=== PATIENT | male | born 1955 | race Caucasian/White ===

== ENCOUNTER → 2020-09-05 14:08 | Outpatient (CLI) | payer OTHER, SELFPAY ==
--- NOTE | ~2020-09-05 | XR_ITS ---
EXAMINATION: XR chest 2V EXAM DATE: 09/05/2020 14:27 INDICATION: Respiratory infection one month ago, shortness of breath for one month. Dyspnea. TECHNIQUE: Frontal and lateral projections of the chest obtained and reviewed. Comparison is made to prior examination from 04/30/2019. FINDINGS: Scattered small regions of post infectious residua. This is unchanged compared to 2019 The lungs are otherwise clear. There are no pleural effusions. The cardiomediastinal silhouette is with in normal limits. There is no pneumothorax suspected. The bones and soft tissues are unremarkable. IMPRESSION: No acute cardiopulmonary findings. Reviewed, dictated and finalized at location B.
== END ==
PROVIDERS: PCP Emergency Medicine; Visit Provider Emergency Medicine
DX: R06.00 Dyspnea, unspecified (principal)
CPT/HCPCS: 71046

== ENCOUNTER 2021-04-04 09:22 | Outpatient (RCR) | payer OTHER, MEDICARE, SELFPAY ==
[2021-04-04] MEDS: ACETAMINOPHEN 325 MG TABLET 650 MG PO (13:14)
[2021-04-04] MEDS: diphenhydrAMINE HCl CAP 25 MG CAPSULE PO (13:14)
[2021-04-04] MEDS: FAMOTIDINE 20 MG TABLET PO (13:15)
[2021-04-04 13:16] VITALS: BP 104/70; PULSE 74; RESP 20; TEMP 36.2; O2SAT 98
[2021-04-04 14:45] VITALS: BP 104/71
--- NOTE | 2021-04-05 08:57 | PC.NURSE ---
Patient states he is feeling much better today after covid infusion.
--- NOTE | 2021-04-05 09:02 | PC.NURSE ---
Patient states he is feeling much better.
== END 2021-04-04 17:00 ==
LOC: AMCINF 09:22
PROVIDERS: PCP Emergency Medicine; Visit Provider Internal Medicine Hematology & Oncology
DX: U07.1 COVID-19 (principal); I10 Essential (primary) hypertension
CPT/HCPCS: A9270; M0243; Q0243

== ENCOUNTER 2021-05-01 09:22 | Outpatient (CLI) | payer OTHER, SELFPAY ==
--- NOTE | ~2021-05-01 | MR_ITS ---
EXAMINATION: MR cervical spine wo con EXAM DATE: 05/01/2021 10:19 INDICATION: M54.2 - Cervicalgia TECHNIQUE: Multi-sequential, multiplanar MR images of the cervical spine were obtained without contra st. Axial T2, axial T2 MERGE sequence. Sagittal T1, T2, T2 fat saturation images also obtained. Th ere is no prior study for comparison. FINDINGS: There is moderate disc disease C4-C7. There is left-sided endplate edema at C4-5, mild nick ma within these facet joints. There is 1 to 2 mm anterolisthesis C4 on C5. The spinal cord signal int ensity and intrinsic morphology is normal. Cervicomedullary junction is normal in appearance. Paraspi nal soft tissue is unremarkable. There is upper thoracic levoscoliosis, about 18 degrees as measured from T1-T4. Level by level evaluation: C2-C3: Disc does not extend beyond the endplate margin. Uncovertebral joint arthropathy: Mild right lateral. Facet joint arthropathy: Mild bilateral. Neural foraminal stenosis: No stenosis. Central canal stenosis: No stenosis. C3-C4: There is a mild diffuse disc bulge. Uncovertebral joint arthropathy: Mild to moderate bilateral. Facet joint arthropathy: Moderate left, mild to moderate right. Neural foraminal stenosis: Mild to moderate left, mild right. Central canal stenosis: Mild. C4-C5: There is a mild to moderate diffuse disc bulge. Uncovertebral joint arthropathy: Moderate to severe left, moderate right. Facet joint arthropathy: Severe left. Neural foraminal stenosis: Moderate to severe left, mild to moderate right. Central canal stenosis: Mild. C5-C6: There is a mild diffuse disc bulge. Uncovertebral joint arthropathy: Moderate bilateral. Facet joint arthropathy: Mild to moderate bilateral. Neural foraminal stenosis: Mild to moderate bilateral. Central canal stenosis: Mild. C6-C7: There is a mild diffuse disc bulge. Uncovertebral joint arthropathy: Moderate bilateral. Facet joint arthropathy: Mild to moderate bilateral. Neural foraminal stenosis: Mild bilateral. Central canal stenosis: No stenosis. C7-T1: There is a mild diffuse disc bulge. Uncovertebral joint arthropathy: Moderate bilateral. Facet joint arthropathy: Mild to moderate bilateral. Neural foraminal stenosis: Moderate to severe right, mild left. Central canal stenosis: No stenosis. IMPRESSION: Cervical spondylosis with the left C4-5 and the right C7-T1 neural foramen most narrowed on exam. Reviewed, dictated and finalized at location A. 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
== END 2021-05-01 09:23 | disposition home or self-care (01) ==
PROVIDERS: PCP Emergency Medicine; Visit Provider Emergency Medicine
DX: S16.1XXA Strain of muscle, fascia and tendon at neck level, initial encounter (principal); X58.XXXA Exposure to other specified factors, initial encounter; M47.892 Other spondylosis, cervical region
CPT/HCPCS: 72141

== ENCOUNTER 2021-10-26 11:32 | Outpatient (CLI) | payer OTHER, SELFPAY ==
--- NOTE | ~2021-10-26 | CT_ITS ---
EXAMINATION: CT sinus wo con DATE: 10/26/2021 11:54 INDICATION: Chronic sinusitis. Congestion. TECHNIQUE: Computed tomography (CT) of the paranasal sinuses was performed without contrast. Iterativ e reconstruction technique was employed. Exam dose: 315.62 mGy-cm total exam DLP. COMPARISON: None FINDINGS: There is rightward bowing of the nasal septum. There is prominent soft tissue swelling of t he middle and inferior nasal turbinates bilaterally. Intralamellar cell of left middle nasal turbinat e The ostiomeatal unit is patent on the right. There is soft tissue thickening of the left infundibulum and left maxillary ostium. Left nasal antral window is noted. Proxy 12 mm mucous retention cyst or polyp along the lower lateral right maxillary sinus wall. There is minimal mucoperiosteal thickening of both maxillary sinuses. The paranasal sinuses otherwise are n ormally developed and aerated. The mastoid air cells are normally developed and aerated. IMPRESSION: Rightward bowing of nasal septum Intralamellar cell of left middle nasal turbinate Prominent soft tissue swelling of the nasal turbinates Partial opacification of left infundibulum Left nasal antral window Mild mucoperiosteal thickening of the maxillary sinuses and 12 mm right maxillary sinus mucous retent ion cyst or polyp Reviewed, dictated and finalized at Location A. Reviewed, dictated and finalized at location A. IMPRESSION: Rightward bowing of nasal septum Intralamellar cell of left middle nasal turbinate Prominent soft tissue swelling of the nasal turbinates Partial opacification of left infundibulum Left nasal antral window Mild mucoperiosteal thickening of the maxillary sinuses and 12 mm right maxilla ry sinus mucous retention cyst or polyp
== END 2021-10-26 11:33 | disposition home or self-care (01) ==
PROVIDERS: PCP Emergency Medicine; Visit Provider Emergency Medicine
DX: J32.9 Chronic sinusitis, unspecified (principal); J34.2 Deviated nasal septum
CPT/HCPCS: 70486

== ENCOUNTER 2021-12-28 01:16 | Day surgery (SDC) | payer OTHER, SELFPAY ==
[2021-12-17 13:37] VITALS: BMI 23.7
[2021-12-28 10:00] VITALS: BP 132/92; PULSE 88; RESP 18; TEMP 36.1; O2SAT 98; BMI 23.4
[2021-12-28 10:34] LABS: Glucose Point of Care 54 mg/dl (65-105)
[2021-12-28] MEDS: LACTATED RINGERS 1,000 ML 150 ML IV CONT (10:34)
--- NOTE | 2021-12-28 10:37 | SUR.PREOP ---
1033-PT'S BLOOD SUGAR 54. PT STATES HE FELT LIGHT HEADED THIS MORNING, BUT NOT BAD NOW. DR. JAUREGUI AWARE. ORDERS RECEIVED FOR 12.5G 50% DEXTROSE IVP.
--- NOTE | 2021-12-28 10:38 | PM.HPGS ---
History of Present Illness History of Present Illness Consent: Risks, benefits, and alternatives have been discussed and questions answered. Patient agrees to proceed with procedure. Chief complaint: constipation,change in bowel habits,alexander's esop Narrative: Kirit Lema is a 66 year old male here for egd and colonoscopy. He says that last colonoscopy in 2014 and thinks had polyp. 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, last EGD 2018 with no more signs of Alexander's done by Dr Montano Review of Systems Constitutional: Constitutional: Denies headache(s) and Denies weakness Eyes: Eyes: Denies blurry vision ENT: Reports Normal hearing present, Denies headache(s) and Denies neck pain Cardiovascular: Cardiovascular: Denies chest pain and Denies dyspnea Respiratory: Respiratory: Denies dyspnea Gastrointestinal: Gastrointestinal: Reports no additional gastrointestinal complaints Genitourinary: Genitourinary: Denies dysuria Musculoskeletal: Musculoskeletal: Denies neck pain Integumentary/Breasts: Skin/Breast: Denies dry skin Neurologic: Reports Normal hearing present, Denies headache(s) and Denies weakness Psychiatric: Psychiatric: Denies anxiety Endocrine: Endocrine: Denies change in body appearance Hematologic/Lymphatic: Hematologic/Lymphatic: Denies easy bleeding Allergic/Immunologic: Allergic/Immunologic: Denies urticaria PMFSH Past Medical History Medical History (Updated 12/28/21 @ 10:39 by Amaury Cross MD) Alexander esophagus Colon cancer screening CVA (cerebral vascular accident) 08/2017 Diabetes type 2, controlled GERD (gastroesophageal reflux disease) Hypertension Family History Family History Mother Family history of malignant neoplasm Family history of cardiovascular disease Father Family history of cardiovascular disease Sibling Family history of cardiovascular disease Social History Social History Smoking status: Never smoker Alcohol intake: current Alcohol use details: social Substance use: never Substance use type: does not use Living arrangements: with family Spiritual care concerns: No Meds Home Medications and Allergies Home Medications Medication Instructions Recorded Confirmed Type aspirin 81 mg chewable tablet 81 mg PO DAILY 03/29/19 12/28/21 History pen needle, diabetic 31 gauge x #200 ea 12/01/19 12/28/21 Rx 1/4 (UltiCare Pen Needle) blood sugar diagnostic (Contour See Rx Instructions .Route 05/15/20 12/28/21 Rx Next Test Strips) .COMPLEX #200 strips pravastatin 10 mg tablet See Rx Instructions .Route 01/15/21 12/28/21 Rx .COMPLEX #90 tabs trazodone 150 mg tablet See Rx Instructions .Route 01/15/21 12/28/21 Rx .COMPLEX #90 tabs metformin 500 mg tablet See Rx Instructions .Route 01/29/21 12/28/21 Rx .COMPLEX #270 tabs omeprazole 40 mg capsule,delayed See Rx Instructions .Route 06/20/21 12/28/21 Rx release .COMPLEX #180 caps montelukast 10 mg tablet 10 mg PO DAILY #90 tabs 09/12/21 12/28/21 Rx (Singulair) benzonatate 200 mg capsule 200 mg PO TID PRN cough #30 caps 10/19/21 12/28/21 Rx insulin glargine 100 unit/mL (3 See Rx Instructions .Route 11/06/21 12/28/21 Rx mL) subcutaneous pen (Lantus .COMPLEX #45 mL Solostar U-100 Insulin) linaclotide 72 mcg capsule 72 mcg PO DAILY #30 caps 11/08/21 12/28/21 Rx (Linzess) lisinopril 40 mg tablet See Rx Instructions .Route 11/14/21 12/28/21 Rx .COMPLEX #90 tabs fluticasone propionate 50 2 spray intranasal BID #15.8 mL 11/21/21 12/28/21 Rx mcg/actuation nasal spray,suspension (Flonase Allergy Relief) duloxetine 60 mg capsule,delayed 60 mg PO DAILY #90 caps 12/10/21 12/28/21 Rx release (Cymbalta) azelastine 137 mcg (0.1 %) nasal See Rx Instructions .Route 12/14/21 12/28/21 Rx spray aerosol .COMPLEX #30 mL
--- NOTE | 2021-12-28 10:41 | WPDANESEPPF ---
Anes - Initial Pre Proc Eval Procedure: Operation Date: 12/28/21 11:15 Proposed Procedures p Esophagogastroduodenoscopy & Colonoscopy - Amaury Cross MD Date/Time: 12/28/21 10:41 Surgeon: Amaury Cross MD Pre Op Diagnosis: constipation,change in bowel habits,alexander's esop Patient Data Age: 66 Gender: M Height: 1.83 m Weight: 78.4 kg Last Vital Signs Temp 97.0 F L 12/28/21 10:00 Pulse 88 12/28/21 10:00 Resp 18 12/28/21 10:00 BP 132/92 H 12/28/21 10:00 Pulse Ox 98 12/28/21 10:00 O2 Del Method Room Air 12/28/21 10:00 Allergies Allergy/AdvReac Type Severity Reaction Status Date / Time No Known Allergies Allergy Verified 12/28/21 10:06 Home Medications Medication Instructions Recorded Confirmed Type aspirin 81 mg chewable tablet 81 mg PO DAILY 03/29/19 12/28/21 History pen needle, diabetic 31 gauge x #200 ea 12/01/19 12/28/21 Rx 1/4 (UltiCare Pen Needle) blood sugar diagnostic (Contour See Rx Instructions .Route 05/15/20 12/28/21 Rx Next Test Strips) .COMPLEX #200 strips pravastatin 10 mg tablet See Rx Instructions .Route 01/15/21 12/28/21 Rx .COMPLEX #90 tabs trazodone 150 mg tablet See Rx Instructions .Route 01/15/21 12/28/21 Rx .COMPLEX #90 tabs metformin 500 mg tablet See Rx Instructions .Route 01/29/21 12/28/21 Rx .COMPLEX #270 tabs omeprazole 40 mg capsule,delayed See Rx Instructions .Route 06/20/21 12/28/21 Rx release .COMPLEX #180 caps montelukast 10 mg tablet 10 mg PO DAILY #90 tabs 09/12/21 12/28/21 Rx (Singulair) benzonatate 200 mg capsule 200 mg PO TID PRN cough #30 caps 10/19/21 12/28/21 Rx insulin glargine 100 unit/mL (3 See Rx Instructions .Route 11/06/21 12/28/21 Rx mL) subcutaneous pen (Lantus .COMPLEX #45 mL Solostar U-100 Insulin) linaclotide 72 mcg capsule 72 mcg PO DAILY #30 caps 11/08/21 12/28/21 Rx (Linzess) lisinopril 40 mg tablet See Rx Instructions .Route 11/14/21 12/28/21 Rx .COMPLEX #90 tabs fluticasone propionate 50 2 spray intranasal BID #15.8 mL 11/21/21 12/28/21 Rx mcg/actuation nasal spray,suspension (Flonase Allergy Relief) duloxetine 60 mg capsule,delayed 60 mg PO DAILY #90 caps 12/10/21 12/28/21 Rx release (Cymbalta) azelastine 137 mcg (0.1 %) nasal See Rx Instructions .Route 12/14/21 12/28/21 Rx spray aerosol .COMPLEX #30 mL Laboratory Tests 12/28/21 10:30 POC Capillary Glucose 54 mg/dl L* mg/dl (65-105) Patient hx anesthesia problems: none Family hx anesthesia problems: none Results Review: All pre-operative results and documents have been reviewed as part of the pre-operative evaluation. [facility] Past Medical History Medical History (Updated 12/28/21 @ 10:39 by Amaury Cross MD) Alexander esophagus Colon cancer screening CVA (cerebral vascular accident) 08/2017 Diabetes type 2, controlled GERD (gastroesophageal reflux disease) Hypertension Family History Family History Mother Family history of malignant neoplasm Family history of cardiovascular disease Father Family history of cardiovascular disease Sibling Family history of cardiovascular disease Social History Social History Smoking status: Never smoker Alcohol intake: current Alcohol use details: social Substance use: never Substance use type: does not use Living arrangements: with family Spiritual care concerns: No Anes - Eval Final PreProcedure Day of Procedure 12/28/21 10:41 Patient weight: normal Heart: regular rate and rhythm Lungs: clear to auscultation Airway: Mallampati scale class II Neurological: alert and oriented Last oral intake: >/= 8 hours ASA classification: III Emergent: no Anesthetic plan: proceed Anesthesia type and monitoring: general GIVS and standard monitoring Results Review: All
[2021-12-28] MEDS: DEXTROSE 50% 25 GM/50 ML SYRINGE IV PUSH (10:45)
--- NOTE | 2021-12-28 10:57 | SUR.OPER ---
EGD ended at 1053. Colonoscopy started at 1059.
[2021-12-28 11:14] VITALS: BP 85/51; PULSE 64; RESP 20; O2SAT 100
[2021-12-28 11:24] VITALS: BP 95/61; PULSE 66; RESP 18; O2SAT 97
[2021-12-28 11:26] LABS: Glucose Point of Care 81 mg/dl (65-105)
[2021-12-28 11:34] VITALS: BP 119/83; PULSE 66; RESP 16; O2SAT 99
== END 2021-12-28 11:40 | disposition home or self-care (01) ==
PROVIDERS: PCP Emergency Medicine; Visit Provider Internal Medicine Gastroenterology
PROC: 0DJ08ZZ Inspection of Upper Intestinal Tract, Via Natural or Artificial Opening Endoscopic (ICD-10-PCS; CPT 43235; principal; 2021-12-28 11:15)
DX: Z12.11 Encounter for screening for malignant neoplasm of colon (principal); K64.8 Other hemorrhoids; K29.50 Unspecified chronic gastritis without bleeding; K59.00 Constipation, unspecified; K22.70 Barrett's esophagus without dysplasia; Z79.82 Long term (current) use of aspirin; Z79.84 Long term (current) use of oral hypoglycemic drugs; Z79.4 Long term (current) use of insulin; I25.2 Old myocardial infarction; K21.9 Gastro-esophageal reflux disease without esophagitis; I10 Essential (primary) hypertension; Z86.73 Personal history of transient ischemic attack (TIA), and cerebral infarction without residual deficits
CPT/HCPCS: 45380; 43239; 82948; 88305; J2704; J7120

== ENCOUNTER 2022-10-15 13:43 | Outpatient (CLI) | payer OTHER, SELFPAY ==
--- NOTE | ~2022-10-15 | CT_ITS ---
EXAMINATION: CT cervical spine wo con DATE: 10/15/2022 14:18 INDICATION: Strain of muscle, fascia, and tendon. Upper back pain. TECHNIQUE: Computed tomography (CT) of the cervical spine was performed without intravenous contrast. Automated exposure control and iterative reconstruction technique were employed. The dose-length pro duct was 452.55 mGy-cm. COMPARISON: Cervical spine MRI 05/01/2021 FINDINGS: There is 20 degrees levoscoliosis of cervicothoracic spine. There is 2 mm anterolisthesis o f C4 on C5. There is hypolordosis of cervical spine. Vertebral body heights are normal. There is mild ly decreased disc height at C2-C3 and severely decreased disc height from C3-C4 through C7-T1 with en dplate remodeling. The following disc levels are specifically discussed: C2-C3: There is mild bilateral uncovertebral joint osteoarthritis. There is mild bilateral facet join t osteoarthritis. There is no neural foraminal stenosis. There is no central canal stenosis. C3-C4: There is severe bilateral uncovertebral joint osteoarthritis. There is mild right and severe l eft facet joint osteoarthritis. There is mild bilateral neural foraminal stenosis. There is mild cent ral canal stenosis. C4-C5: There is severe bilateral uncovertebral joint osteoarthritis. There is mild right and severe l eft facet joint osteoarthritis. There is mild bilateral neural foraminal stenosis. There is mild cent ral canal stenosis. C5-C6: There is severe bilateral uncovertebral joint osteoarthritis. There is mild bilateral facet heide int osteoarthritis. There is mild bilateral neural foraminal stenosis. There is mild central canal st enosis. C6-C7: There is moderate right and mild left uncovertebral joint osteoarthritis. There is mild bilate ral facet joint osteoarthritis. There is no neural foraminal stenosis. There is mild central canal st enosis. C7-T1: There is severe right uncovertebral joint osteoarthritis. There is mild right and severe left facet joint osteoarthritis. There is mild right neural foraminal stenosis. There is no central canal stenosis. IMPRESSION: 1. Severe cervical spondylosis, stable from 05/01/2021. 2. Cervicothoracic levoscoliosis. Reviewed, dictated and finalized at location A.
--- NOTE | ~2022-10-15 | CT_ITS ---
EXAMINATION: CT thoracic spine wo con DATE: 10/15/2022 14:18 INDICATION: Pain in thoracic spine. TECHNIQUE: Computed tomography (CT) of the thoracic spine was performed without intravenous contrast. Automated exposure control and iterative reconstruction technique were employed. The dose-length pro duct was 859.85 mGy-cm. COMPARISON: Chest CT 09/21/2013 FINDINGS: There are surgical changes of the stomach. There is 16 degrees dextroscoliosis of thoracic spine. There is severely decreased disc height at T7-T8 and T11-T12. There is mildly decreased disc h eight at multiple levels. There is multilevel mild to moderate facet joint osteoarthritis. There is m ild central canal stenosis at T7-T8 and T11-T12. On the right, there is mild neural foraminal stenosi s at T3-T4. On the left, there is mild neural foraminal stenosis at T7-T8. IMPRESSION: 1. Severe thoracic spondylosis. 2. Thoracic dextroscoliosis. Reviewed, dictated and finalized at location A.
== END 2022-10-15 13:44 | disposition home or self-care (01) ==
PROVIDERS: PCP Emergency Medicine; Visit Provider Emergency Medicine
DX: S16.1XXA Strain of muscle, fascia and tendon at neck level, initial encounter (principal); X58.XXXA Exposure to other specified factors, initial encounter; M47.894 Other spondylosis, thoracic region; M47.892 Other spondylosis, cervical region
CPT/HCPCS: 72125; 72128

== ENCOUNTER 2022-12-19 09:00 | Outpatient (RCR) | payer OTHER, SELFPAY ==
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
--- NOTE | 2022-11-28 10:19 | OPREHPOC ---
Outpatient Therapy Plan of Care This is a Multidisciplinary Plan of Care that may contain components documented by all disciplines (PT, OT, and ST.) PT Problem 1 PT Problem #1 Knowledge Deficit PT Goal 1 Goal 1* indep with home exercise program Progress Met Comment 11-28-22 progress continue towards goals PT Problem 2 PT Problem #2 Pain PT Goal 1 Goal 1* pt report pain of 7/10 at worst 2* with sleeping, awaken 1x/night due to neck pain Progress Partially Met Comment 11-28-22 progress met goal 2 NEW GOALS: 1* pt report pain rating of 6/10 at worst 2* self assessment functional score with Neck Disability Index 40% limitation PT Problem 3 PT Problem #3 Impaired Flexibility PT Goal 1 Goal improved neck motion for ability to drive and do home tasks: sitting active cervical 1* rotation R to 75' 2* rotation L to 65' Progress Not Met Comment 11-28-22 progress continue towards goals PT Problem 4 PT Problem #4 Impaired Strength PT Goal 1 Goal 1* pt stand with neck in neutral/ no side bend to R 2* pt perform cervical- thoracic strengthening exercises in sit and stand positions x 15 reps Progress Partially Met Comment 11-28-22 progress met goal 2- update to 20 reps continue towards goals
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
--- NOTE | 2022-12-19 09:47 | PTOPDC ---
Assessment and note entered by Moriah Perkins, PT Evaluation Information Assessment Status Discharge Diagnosis cervical and thoracic radiculopathy Onset September 29, 2022 Subjective Information Kirit reports: some relief of pain for day or day and half after therapy; massage helps neck; doing the home stretches and exercises; using home stim unit and heat at home; to see dr next week. Reported Pain Level Pain Score Self Report Pain Score Self Report Additional Pain Score Comments pain range in the past week 6-810: R and L cervical, R upper traps; sleep disrupted, awaken from pain 7-8x/night increase pain: looking down, laundry, dishes, lie down in bed, mop floor; turned neck quick with driving few days ago; decrease pain sit with head supported on recliner Assessment PT Clinical Summary Kirit has received a total of 13 PT sessions. Compared to the last reassessment: pain rating is worse, from 4-8/10 to 6-8/10; sleep is disrupted by awakening 7-8x/night due to neck pain; Oswestry self assessment functional score is worse from 46 to 52% limitation in activity tolerance; cervical active ROM of rotation to R and L is slightly less and most pain increase with cervical retraction; he continues to have poor positioning of his neck and shoulders due to chronic shoulder pain/surgeries; Education has been completed for HEP and posture awareness. He reports slight relief of pain after therapy, for 1-1&1/2 hours, but then returns. The goals were not achieved. Discharge PT services. He is to follow up with the dr next week. Recommend further imaging and/or referral to neurosurgeon for assessment of pt. Plan of Care PT Services Indicated No
== END 2022-12-19 13:29 | disposition home or self-care (01) ==
LOC: ANHPT 09:00
PROVIDERS: PCP Emergency Medicine; Visit Provider Emergency Medicine
DX: M47.812 Spondylosis without myelopathy or radiculopathy, cervical region (principal); M47.814 Spondylosis without myelopathy or radiculopathy, thoracic region
CPT/HCPCS: 97110; 97140; 97162; 97530

== ENCOUNTER 2022-12-26 10:21 | Outpatient (CLI) | payer OTHER, SELFPAY ==
--- NOTE | ~2022-12-26 | XR_ITS ---
EXAMINATION: XR hand RT 2V INDICATION: Right hand pain TECHNIQUE: Two views of the right hand are obtained. COMPARISON: 07/29/2017 FINDINGS: There is moderate osteoarthritis at the first carpometacarpal joint. Bone alignment is norm al. There is no acute fracture. Moderate osteoarthritis is noted in multiple interphalangeal joints. A heterotopic ossification distal to the ulnar styloid likely represents prior fracture. Soft tissues are unremarkable. IMPRESSION: 1. Osteoarthritis without acute osseous abnormality. Reviewed, dictated and finalized at location A.
== END 2022-12-26 10:22 | disposition home or self-care (01) ==
LOC: ANHIMG 10:24
PROVIDERS: PCP Emergency Medicine; Visit Provider Emergency Medicine
DX: S69.90XA Unspecified injury of unspecified wrist, hand and finger(s), initial encounter (principal); M19.041 Primary osteoarthritis, right hand
CPT/HCPCS: 73120

== ENCOUNTER 2023-02-20 13:04 | Observation (INO) | payer OTHER, SELFPAY ==
[2023-02-20] VITALS (10 sets, daily range): BP systolic 125–152; BP diastolic 87–100; PULSE 66–88; RESP 14–22; TEMP 36.2–36.4; O2SAT 97–100; BMI 25.2
--- NOTE | ~2023-02-20 | MR_ITS ---
MRI of the brain Clinical History: Ataxia Technique: Axial and sagittal T1-weighted images were acquired. These were followed by axial T2-weigh cristy, diffusion weighted, gradient, and FLAIR images. Following intravenous administration of 16 cc Mu ltiHance gadolinium, T1-weighted fat-sat imaging was performed in the axial and coronal planes. COMPARISON: 08/22/2017 Findings: There is no acute infarct, intracranial hemorrhage, or mass lesion. There is no significant signal abnormality in the brain parenchyma. Ventricles and subarachnoid spaces are essentially unremarkable. Orbits are unremarkable. Paranasal s inuses and mastoid air cells are clear. Major intracranial flow voids appear intact. Sagittal midline structures are intact. Probable benign small developmental venous angioma noted in the left frontal lobe, of no clinical sig nificance. IMPRESSION: No significant abnormality identified. Small left frontal developmental venous angioma, of no clinical significance. Reviewed, dictated and finalized at [facility].
--- NOTE | ~2023-02-20 | CT_ITS ---
EXAMINATION: CT brain wo con DATE: 02/20/2023 14:14 INDICATION: Head injury TECHNIQUE: Computed tomography (CT) of the head was performed without intravenous contrast. Sagittal and coronal reconstructions were performed. The mA was adjusted according to patient size. Iterative reconstruction technique was employed. The dose-length product was 605.33 mGy-cm. COMPARISON: head CT dated 08/21/2017 FINDINGS: No fracture. No acute intracranial hemorrhage, acute infarction or abnormal extra axial fluid collect ion. Symmetric prominence of the sulci consistent with mild age-appropriate diffuse cerebral volume l oss. Ventricles are normal and symmetric. No mass/mass effect. The orbits, paranasal sinuses and mas toid air cells are normal. IMPRESSION: 1. Normal aging brain. No fracture or acute intracranial process. Reviewed, dictated and finalized at location A.
--- NOTE | 2023-02-20 13:16 | ECG_ITS ---
Measurements Intervals [place] Rate: 73 P: 29 OK: 189 QRS: 11 QRSD: 86 T: 20 QT: 338 QTc: 375 Interpretive Statements SINUS RHYTHM BASELINE ARTIFACT NORMAL ECG NO PREVIOUS ECG AVAILABLE FOR COMPARISON Electronically Signed On 02-20-2023 17:23:17 CDT by Buddy Coles M.D.
[2023-02-20 13:26] LABS: Basophils Absolute Auto 0.1 K/mm3 (0.0-0.1); Basophils Percent Auto 0.7 % (0.2-1.2); Eosinophils Absolute Auto 1.3 K/mm3 (0-0.3); Eosinophils Percent Auto 17.4 % (0-4.4); Hematocrit 38.9 % (42.0-52.0); Hemoglobin 12.5 g/dL (14.0-18.0); Immature Granulocyte Absolute 0.06 K/mm3 (0.00-0.031); Immature Granulocyte Percent A 0.8 % (0-0.5); Lymphocytes Absolute Auto 1.57 K/mm3 (0.9-3.2); Mean Corpuscular HGB Conc 32.1 g/dl (32-36); Mean Corpuscular Hemoglobin 28.3 pg (26-34); Mean Platelet Volume 10.5 fl (7.4-10.4); Monocytes Absolute Auto 0.8 K/mm3 (0.1-0.6); Monocytes Percent Auto 10.7 % (2.6-8.5); Neutrophils Absolute Auto 3.7 K/mm3 (1.3-6.7); Neutrophils Percent Auto 49.4 % (45.5-73.1); Platelet Count Result 190 k/mm3 (150-375); Red Blood Count 4.42 M/mm3 (4.6-6.20); Red Cell Distribution Width 13.9 % (11.5-14.5); White Blood Count 7.5 K/mm3 (4.5-10.0)
[2023-02-20] MEDS: SODIUM CHLORIDE 0.9% IV 1,000 ML 999 ML IV CONT (14:19)
[2023-02-20 14:37] LABS: Alanine Aminotransferase 16 U/L (6-50); Albumin Level 4.4 g/dL (3.5-5.1); Alkaline Phosphatase 74 U/L (38-126); Anion Gap 6 mmol/L (8-16); Aspartate Amino Transferase 24 U/L (17-59); Bilirubin,Total 0.4 mg/dL (0.2-1.3); Blood Urea Nitrogen 12 mg/dL (9-20); Carbon Dioxide 27 mmol/L (22-30); Chloride 100 mmol/L (98-107); Estimated CRCL calculation 54 ml/min; Estimated Glomerular Filt Rate 55; Glucose 115 mg/dL (65-110); Potassium 4.8 mmol/L (3.4-5.0); Sodium 133 mmol/L (137-145)
--- NOTE | 2023-02-20 17:33 | PC.NURSE ---
pt. initially stood and attempted walking but felt dizzy and stated he felt like his legs were shaking. pt. sat at the edge of bed, then stood still on his feet for increments of 1-2 min. each. pt. walked around nurses station and reported he felt better and like his legs were more steady after walking. Pre-walk O2 sat of 98% and post-walk sat of 97% O2.
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
[2023-02-20] MEDS: MECLIZINE HCL 25 MG TABLET PO (18:10)
[2023-02-20] MEDS: traMADol HCL (*CRX) 50 MG TABLET PO (18:33)
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
--- NOTE | 2023-02-20 22:50 | ADMGEN ---
This patient, Kirit Lema, was admitted to Medical Room 248-. Patient/family oriented to hospital policies and general routines including ID bracelet, bed and alarms, visiting hours, pain management, procedures, bathroom and other care routines, personal items, smoking policy, room service/diet, and visiting hours. Information on how to activate the Rapid Response Team has been discussed. Patient/Family are encouraged to report perceived risks to care and to ask questions if they do not understand what they are told or what they should do.
[2023-02-20] MEDS: HYDROcodone/acetaminophen (*CRX) 5-325 MG TABLET 1 TAB PO (23:17)
[2023-02-21] VITALS (8 sets, daily range): BP systolic 116–123; BP diastolic 74; PULSE 56–75; RESP 18–20; TEMP 36.2–36.7; O2SAT 98–99
[2023-02-21 08:51] LABS: Glucose Point of Care 141 mg/dl (65-105)
--- NOTE | 2023-02-21 09:32 | PM.IMPN ---
Progress Note: A&P Assessment and Plan (1) Gait disturbance: Code(s): R26.9 - Unspecified abnormalities of gait and mobility Status: Acute Assessment and Plan: Admit to [facility] tele Bed rest MRI of the brain Neurology consult CT head reviewed Suspect peripheral vertigo, BPPV vs meniere's disease vs labyrinthitis vs ? Trial meclizine, work with PT/vestibular therapy and f/u ENT outpatient (2) Recurrent falls while walking: Code(s): R29.6 - Repeated falls Status: Acute Assessment and Plan: Fall precautions PT/OT (3) Vertigo: Code(s): R42 - Dizziness and giddiness Status: Acute (4) CKD (chronic kidney disease), stage III: Qualifiers: Chronic kidney disease stage 3 subtype: unspecified whether 3a or 3b Qualified Code(s): N18.30 - Chronic kidney disease, stage 3 unspecified Code(s): N18.3 - Chronic kidney disease, stage 3 (moderate) Status: Acute Assessment and Plan: Continue to monitor BUN and creatinine (5) HTN (hypertension): Qualifiers: Hypertension type: essential hypertension Qualified Code(s): I10 - Essential (primary) hypertension Code(s): I10 - Essential (primary) hypertension Status: Acute Assessment and Plan: Continue lisinopril Blood pressure reviewed 02/21 (6) Diabetes mellitus: Qualifiers: Chronic kidney disease stage: stage 3 (moderate) Diabetes mellitus complication detail: with chronic kidney disease Diabetes mellitus complication status: with kidney complications Diabetes mellitus extermination inspector insulin use: with extermination inspector use Diabetes mellitus type: type 2 Qualified Code(s): E11.22 - Type 2 diabetes mellitus with diabetic chronic kidney disease; N18.3 - Chronic kidney disease, stage 3 (moderate); Z79.4 - FCI (current) use of insulin Code(s): E11.9 - Type 2 diabetes mellitus without complications Status: Acute Assessment and Plan: Continue Lantus Holding metformin Accu-Cheks AC and HS Blood glucose reviewed 02/21 Plan DVT prophylaxis with SCDs GI prophylaxis not indicated Code status full code Subjective Date/time seen: 02/21/23 09:32 Interval history: 67-year-old male with history of diabetes, Hernandez's esophagus, history of CVA is presenting with recurrent vertigo. No overnight events noted. No chest pain or shortness of breath. No nausea, vomiting or diarrhea. No fevers or chills. Review of Systems Review of Systems: 12 point review of systems was assessed and was negative except as noted in the HPI Exam Narrative: General: No acute distress, alert and oriented per baseline HEENT: Atraumatic, normocephalic, mucous membranes moist CV: Regular rate and rhythm, S1, S2 Lungs: Clear to auscultation bilaterally, no rales or crackles noted, no wheezes, good air entry Abdomen: Soft, nontender, nondistended Extremities: Normal to inspection Skin: No rashes noted, no lesions or wounds seen Psych: Euthymic, normal affect Objective Data Vital Signs Vital Signs: Vital Signs - 24 hr 02/20/23 13:05 02/20/23 13:30 02/20/23 13:32 Temperature 97.4 F L Pulse Rate 74 73 80 Respiratory Rate 18 Blood Pressure 148/94 H 139/90 125/96 H Pulse Oximetry 99 Oxygen Delivery Room Air 02/20/23 13:34 02/20/23 13:30 02/20/23 14:00 Temperature Pulse Rate 83 84 71 Respiratory Rate 17 15 Blood Pressure 128/91 H 141/100 H 131/96 H Pulse Oximetry 100 98 Oxygen Delivery 02/20/23 15:30 02/20/23 17:44 02/20/23 18:34 Temperature 97.5 F L Pulse Rate 69 70 88 Respiratory Rate 15 22 H 14 Blood Pressure 136/93 H 140/87 135/90 Pulse Oximetry 100 97 98 Oxygen Delivery 02/20/23 22:53 02/20/23 23:00 02/21/23 00:00 Temperature 97.2 F L Pulse Rate 66 66 64 Respiratory Rate 20 Blood Pressure 152/87 H Pulse Oximetry 100 Oxygen Delivery 02/21/23 04:00 02/21/23 05:23
[2023-02-21] MEDS: DULoxetine HCL 60 MG CAPSULE.DR BY MOUTH (09:47)
[2023-02-21] MEDS: MONTELUKAST SODIUM 10 MG TABLET BY MOUTH (09:47)
[2023-02-21] MEDS: PRAVASTATIN SODIUM 10 MG TABLET BY MOUTH (09:47)
[2023-02-21] MEDS: ASPIRIN 81 MG CHEWABLE TABLET PO (09:47)
[2023-02-21] MEDS: AZELASTINE HCL NASAL 0.1% 137 MCG/SPR 30 ML BTL 1 SPRAY NASAL (09:48)
[2023-02-21] MEDS: lisinopriL 20 MG TABLET 40 MG BY MOUTH (09:48)
--- NOTE | 2023-02-21 09:53 | WPDNEURCNPN ---
Assessment and Plan Assessment and plan (1) Vertigo: Code(s): R42 - Dizziness and giddiness Status: Acute (2) Ataxia: Code(s): R27.0 - Ataxia, unspecified Status: Acute (3) Recurrent falls while walking: Code(s): R29.6 - Repeated falls Status: Acute Plan Kirit Lema is a 67 year old male with a history of Uri's esophagus, HTN, DM, prior stroke resulting in residual L sided dysmetria presenting for evaluation of dizziness. MRI brain negative for acute stroke. Suspect peripheral etiology/vestibular dysfunction. - outpatient vestibular therapy - Given episode of loss of consciousness, we discussed he should not drive for 6 months Consult date: 02/21/23 Reason for consult: Dizziness HPI: Kirit Lema is a 67 year old male with a history of Uri's esophagus, HTN, DM, prior stroke resulting in residual L sided dysmetria presenting for evaluation of dizziness. Symptoms started about two weeks ago, worsening in the past 2-3 days. He describes sensation of room spinning, to the point he is walking into door frames. HE had one episode of loss of consciousness as well. Patient presented to [place] ED where his blood pressure was in the 130-140s systolic. EKG showed normal sinus rhythm. CT head was negative for any acute changes. MRI brain was done this morning and was essentially unrevealing. Review of Systems Constitutional: Constitutional: Denies chills, Denies fever(s) and Denies weight loss Eyes: Eyes: Denies diplopia and Denies loss of vision ENT: Reports dizziness, Reports hearing loss and Reports tinnitus Cardiovascular: Cardiovascular: Denies chest pain, Denies syncope and Denies dyspnea Respiratory: Respiratory: Denies cough, Denies dyspnea and Denies wheezing Gastrointestinal: Gastrointestinal: Denies abdominal pain, Denies change in bowel habits and Denies vomiting Genitourinary: Genitourinary: Denies urinary incontinence Musculoskeletal: Musculoskeletal: Reports myalgias, Reports arthralgias and Denies joint swelling Integumentary/Breasts: Skin/Breast: Denies new lesions and Denies rash Neurologic: Reports as per HPI, Denies dizziness, Denies syncope and Denies loss of vision Psychiatric: Psychiatric: Denies anxiety and Denies depression Endocrine: Endocrine: Denies cold intolerance and Denies heat intolerance Hematologic/Lymphatic: Hematologic/Lymphatic: Denies easy bleeding and Denies easy bruising Allergic/Immunologic: Allergic/Immunologic: Denies no additional allergic/immunologic complaints and Denies wheezing PMFSH Past Medical History Medical History Hernandez esophagus Colon cancer screening CVA (cerebral vascular accident) 08/2017 Diabetes type 2, controlled GERD (gastroesophageal reflux disease) Hypertension Family History Family History Mother Family history of malignant neoplasm Family history of cardiovascular disease Father Family history of cardiovascular disease Sibling Family history of cardiovascular disease Social History Social History Smoking status: Never smoker Alcohol intake: current Drinks per week: 6 Alcohol use details: social Substance use: never Substance use type: does not use Lack of Transportation: No Lack of Food: Never True Current Housing: I Have Housing Concerned About Future Housing: No Difficulty Paying Gas/Electric Bills: No Difficulty Paying for Meds: No Currently Unemployed: No Education: Bachelor's Degree Difficulty w/ Childcare or Family Care: No Living arrangements: with family Spiritual care concerns: No Meds Home Medications and Allergies Home Medications Medication Instructions Recorded Confirmed Type aspirin 81 mg chewable tablet 81 mg PO DAILY 03/29/19 02/20/23 History lorelei franco
[2023-02-21] MEDS: INSULIN ASPART (*BKC) 100 UNITS/ML SUB-Q ×2 (09:55→12:43)
[2023-02-21] MEDS: FLUTICASONE PROPIONATE 0.05% NA SPR 16 GM BTL (*BKC) 1 SPRAY NASAL (09:55)
[2023-02-21 12:22] LABS: Glucose Point of Care 140 mg/dl (65-105)
[2023-02-21] MEDS: MECLIZINE HCL 25 MG TABLET PO (15:43)
--- NOTE | 2023-02-21 16:26 | PM.DS ---
DS: Admitting Diagnosis Discharge Date 02/21/23 Admitting Diagnosis vertigo DS: Discharge Diagnosis Discharge Diagnosis (1) Gait disturbance: Code(s): R26.9 - Unspecified abnormalities of gait and mobility Status: Acute Assessment and Plan: Admit to [facility] Bed rest MRI of the brain Neurology consult CT head reviewed Suspect peripheral vertigo, BPPV vs meniere's disease vs labyrinthitis vs ? Trial meclizine, work with PT/vestibular therapy and f/u ENT outpatient (2) Recurrent falls while walking: Code(s): R29.6 - Repeated falls Status: Acute Assessment and Plan: Fall precautions PT/OT (3) Vertigo: Code(s): R42 - Dizziness and giddiness Status: Acute (4) CKD (chronic kidney disease), stage III: Qualifiers: Chronic kidney disease stage 3 subtype: unspecified whether 3a or 3b Qualified Code(s): N18.30 - Chronic kidney disease, stage 3 unspecified Code(s): N18.3 - Chronic kidney disease, stage 3 (moderate) Status: Acute Assessment and Plan: Continue to monitor BUN and creatinine (5) HTN (hypertension): Qualifiers: Hypertension type: essential hypertension Qualified Code(s): I10 - Essential (primary) hypertension Code(s): I10 - Essential (primary) hypertension Status: Acute Assessment and Plan: Continue lisinopril Blood pressure reviewed 02/21 (6) Diabetes mellitus: Qualifiers: Diabetes mellitus type: type 2 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 use Diabetes mellitus complication status: with kidney complications Diabetes mellitus complication detail: with chronic kidney disease Chronic kidney disease stage: stage 3 (moderate) Qualified Code(s): E11.22 - Type 2 diabetes mellitus with diabetic chronic kidney disease; N18.3 - Chronic kidney disease, stage 3 (moderate); Z79.4 - developmental behavioral physician (current) use of insulin Code(s): E11.9 - Type 2 diabetes mellitus without complications Status: Acute Assessment and Plan: Continue Lantus Holding metformin Accu-Cheks AC and HS Blood glucose reviewed 02/21 Plan DVT prophylaxis with SCDs GI prophylaxis not indicated Code status full code DS: Summary Hospital Course Hospital Course: 67-year-old male with history of diabetes, Hernandez's esophagus, history of CVA is presenting with recurrent vertigo. MRI of the brain nonacute Neurology consult recommended not driving for 6 months and outpatient vestibular therapy CT head reviewed, nonacute Suspect peripheral vertigo, BPPV vs meniere's disease vs labyrinthitis vs ? Trial meclizine, work with PT/vestibular therapy and f/u ENT outpatient Please see above and med rec for details. Patient worked with physical therapy and symptoms resolved with meclizine. He was discharged in stable condition with close outpatient follow-up. Time Spent with Patient Time attestation: Total time spent providing and/or coordinating discharge services: Exam Narrative: General: No acute distress, alert and oriented per baseline HEENT: Atraumatic, normocephalic, mucous membranes moist CV: Regular rate and rhythm, S1, S2 Lungs: Clear to auscultation bilaterally, no rales or crackles noted, no wheezes, good air entry Abdomen: Soft, nontender, nondistended Extremities: Normal to inspection Skin: No rashes noted, no lesions or wounds seen Psych: Euthymic, normal affect DS: Data Data Completed and Pending Labs on day of discharge: Labs from last 24 hours 02/21/23 02/21/23 12:20 08:48 POC Capillary Glucose 140 H 141 H Discharge Plan Discharge Attending physician on discharge: Mercedes Elkins Consulting providers: Colette Linares Discharging Clinician: Mercedes Elkins Patient Disposition: Home, Self-Care Activity: as tolerated Diet: as tolerated Patient Instructions: Antibiotic Form Stand Alone Forms:
[2023-02-21 17:12] LABS: Glucose Point of Care 207 mg/dl (65-105)
== END 2023-02-21 17:50 | disposition home or self-care (01) ==
LOC: ANHED 20:42 → ANH2MED 02-21 06:53
PROVIDERS: Admitting Provider Internal Medicine; Emergency Provider Emergency Medicine; PCP Emergency Medicine; Visit Provider Student in an Organized Health Care Education/Training Program
DX: R26.9 Unspecified abnormalities of gait and mobility (principal); R29.6 Repeated falls; I69.898 Other sequelae of other cerebrovascular disease; R27.8 Other lack of coordination; S09.90XA Unspecified injury of head, initial encounter; W19.XXXA Unspecified fall, initial encounter; E11.9 Type 2 diabetes mellitus without complications; K21.9 Gastro-esophageal reflux disease without esophagitis; I12.9 Hypertensive chronic kidney disease with stage 1 through stage 4 chronic kidney disease, or unspecified chronic kidney disease; E11.22 Type 2 diabetes mellitus with diabetic chronic kidney disease; N18.32 Chronic kidney disease, stage 3b; K22.70 Barrett's esophagus without dysplasia; Z79.82 Long term (current) use of aspirin; Z79.84 Long term (current) use of oral hypoglycemic drugs; Z79.4 Long term (current) use of insulin; Z79.891 Long term (current) use of opiate analgesic; Z79.899 Other long term (current) drug therapy
CPT/HCPCS: 36415; 70450; 70553; 80053; 82948; 85025; 93005; 96360; 96361; 97161; 99285; A9270; A9577; G0378; J1815; J7030

== ENCOUNTER 2023-03-19 10:52 | Outpatient (CLI) | payer OTHER, SELFPAY ==
--- NOTE | ~2023-03-19 | US_ITS ---
EXAMINATION: US carotid duplex BI DATE: 03/19/2023 12:17 INDICATION: Transient cerebral ischemic attack, unspecified. TECHNIQUE: Grayscale, color Doppler, and pulsed Doppler images of the cervical carotid arteries were obtained. The degree of vessel stenosis is placed in one of the following categories: normal, <50%, 5 0-69%, >=70% but less than near-occlusion, near-occlusion, or total occlusion. Note that percent sten osis relative to normal distal artery lumen diameter is indirectly measured from velocity measurement s as described by Bao, et al. Radiology 2003; 229:340-346. COMPARISON: Ultrasound 08/22/2017 FINDINGS: RIGHT: The right common carotid artery (CCA) peak systolic velocity (PSV) is 82 cm/s. The right internal car otid artery (ICA) PSV is 45 cm/s. The right ICA end-diastolic velocity (EDV) is 15 cm/s. The right IC A/CCA PSV ratio is 0.5. Grayscale and color Doppler images yield an estimate of <50% diameter reducti on from plaque in the ICA. There is antegrade flow in the right vertebral artery. LEFT: The left CCA PSV is 78 cm/s. The left ICA PSV is 68 cm/s. The left ICA EDV is 18 cm/s. The left ICA/C CA PSV ratio is 0.9. Grayscale and color Doppler images yield an estimate of <50% diameter reduction from plaque in the ICA. There is antegrade flow in the left vertebral artery. IMPRESSION: 1. <50% stenosis in the right internal carotid artery. 2. <50% stenosis in the left internal carotid artery. Reviewed, dictated and finalized at location A. RANCE DIVER
== END 2023-03-19 10:53 | disposition home or self-care (01) ==
PROVIDERS: PCP Emergency Medicine; Visit Provider Emergency Medicine
DX: G45.9 Transient cerebral ischemic attack, unspecified (principal)
CPT/HCPCS: 93880

== ENCOUNTER 2023-08-25 13:51 | Outpatient (CLI) | payer OTHER, SELFPAY ==
[2023-08-25 14:29] LABS: Alanine Aminotransferase 14 U/L (6-50); Albumin Level 4.9 g/dL (3.5-5.1); Alkaline Phosphatase 76 U/L (38-126); Anion Gap 15 mmol/L (4-12); Aspartate Amino Transferase 29 U/L (17-59); Bilirubin,Total 0.3 mg/dL (0.2-1.3); Blood Urea Nitrogen 16 mg/dL (9-20); Calcium 9.7 mg/dL (8.4-10.2); Carbon Dioxide 17 mmol/L (22-30); Chloride 94 mmol/L (98-107); Estimated Glomerular Filt Rate 55; Glucose 131 mg/dL (65-110); Potassium 5.3 mmol/L (3.4-5.0); Sodium 126 mmol/L (137-145)
== END 2023-08-25 13:52 | disposition home or self-care (01) ==
LOC: ANHLAB 13:52
PROVIDERS: PCP Emergency Medicine; Visit Provider Emergency Medicine
DX: R79.89 Other specified abnormal findings of blood chemistry (principal); E87.5 Hyperkalemia
CPT/HCPCS: 36415; 80053

== ENCOUNTER 2023-08-26 14:00 | Emergency (ER) | payer OTHER, SELFPAY ==
[2023-08-26 14:05] VITALS: BP 127/95; PULSE 84; RESP 18; TEMP 35.8; O2SAT 99
[2023-08-26 14:24] LABS: Basophils Percent Auto 0.5 % (0.2-1.2); Eosinophils Absolute Auto 1.7 K/mm3 (0-0.3); Eosinophils Percent Auto 19.6 % (0-4.4); Hematocrit 37.4 % (42.0-52.0); Immature Granulocyte Absolute 0.05 K/mm3 (0.00-0.031); Immature Granulocyte Percent A 0.6 % (0-0.5); Lymphocytes Absolute Auto 1.82 K/mm3 (0.9-3.2); Lymphocytes Percent Auto 20.8 % (18.3-44.2); Mean Corpuscular HGB Conc 32.1 g/dl (32-36); Mean Corpuscular Hemoglobin 26.3 pg (26-34); Mean Platelet Volume 10.4 fl (7.4-10.4); Monocytes Absolute Auto 0.9 K/mm3 (0.1-0.6); Monocytes Percent Auto 10.2 % (2.6-8.5); Neutrophils Absolute Auto 4.2 K/mm3 (1.3-6.7); Neutrophils Percent Auto 48.3 % (45.5-73.1); Platelet Count Result 253 k/mm3 (150-375); Red Blood Count 4.56 M/mm3 (4.6-6.20); Red Cell Distribution Width 14.2 % (11.5-14.5); White Blood Count 8.7 K/mm3 (4.5-10.0)
[2023-08-26 14:33] VITALS: BP 145/93; PULSE 81; RESP 16; O2SAT 98
[2023-08-26 14:37] LABS: Alanine Aminotransferase 14 U/L (6-50); Albumin Level 4.9 g/dL (3.5-5.1); Alkaline Phosphatase 86 U/L (38-126); Anion Gap 10 mmol/L (4-12); Aspartate Amino Transferase 23 U/L (17-59); Bilirubin,Total 0.3 mg/dL (0.2-1.3); Blood Urea Nitrogen 18 mg/dL (9-20); Calcium 9.9 mg/dL (8.4-10.2); Carbon Dioxide 25 mmol/L (22-30); Chloride 97 mmol/L (98-107); Estimated CRCL calculation 44 ml/min; Estimated Glomerular Filt Rate 44; Glucose 190 mg/dL (65-110); Potassium 5.1 mmol/L (3.4-5.0); Sodium 132 mmol/L (137-145)
--- NOTE | 2023-08-26 14:43 | PC.NURSE ---
reports PCP told hime to come to the ED to find out why he has chronically low sodium
--- NOTE | 2023-08-26 14:45 | ED.RECABL ---
HPI - Recheck/Abnormal Lab/Rx General Chief Complaint: Recheck/Abnormal Lab/Rx Stated Complaint: abnormal sodium Time Seen by Provider: 08/26/23 14:45 History of Present Illness HPI narrative: Patient is a 67 year old male with history of HTN, Hernandez's esophagus, here with abnormal outpatient labs. 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 Rebolledo ordered some lab work on Friday. He was called yesterday because his sodium was low and he had repeat lab work performed yesterday. He was notified today that his sodium continues to be low and he should go to the ER. He notes for the last 1 year he has struggled with dizziness and recurrent falls, this has reportedly improved recently. He does think he has changed several medications over this winter, is unsure of what these are. Related Data Home Medications Medication Instructions Recorded Confirmed aspirin 81 mg chewable tablet 81 mg PO DAILY 03/29/19 07/18/23 amitriptyline 10 mg tablet 10 mg PO HS 02/20/23 07/18/23 gabapentin 300 mg capsule 300 mg PO TID 07/18/23 07/18/23 glyburide 2.5 mg tablet 2.5 mg PO BID 07/18/23 07/18/23 insulin glargine 100 unit/mL See Rx Instructions subcut QPM 07/18/23 07/18/23 subcutaneous solution (Lantus U-100 Insulin) lisinopril 10 mg tablet 10 mg PO DAILY 07/18/23 07/18/23 polyethylene glycol 3350 17 17 g PO DAILY 07/18/23 07/18/23 gram/dose oral powder (Miralax) Allergies Allergy/AdvReac Type Severity Reaction Status Date / Time No Known Allergies Allergy Verified 07/18/23 09:52 Review of Systems Review of Systems: All systems reviewed & are unremarkable except as noted in HPI and below PMFSH Past Medical History Medical History Hernandez esophagus Colon cancer screening CVA (cerebral vascular accident) 08/2017 Diabetes type 2, controlled GERD (gastroesophageal reflux disease) Hypertension Family History Family History Mother Family history of malignant neoplasm Family history of cardiovascular disease Father Family history of cardiovascular disease Sibling Family history of cardiovascular disease Social History Social History Smoking status: Never smoker Alcohol intake: current Drinks per week: 6 Alcohol use details: social Substance use: never Substance use type: does not use Current Housing: Decline to Answer Concerned About Future Housing: Decline to Answer Difficulty Paying Gas/Electric Bills: Decline to Answer Difficulty Paying for Meds: Decline to Answer Currently Unemployed: Decline to Answer Education: Decline to Answer Difficulty w/ Childcare or Family Care: Decline to Answer Living arrangements: with family Spiritual care concerns: No Exam Narrative: GENERAL: WELL-APPEARING, WELL-NOURISHED, AND IN NO ACUTE DISTRESS. HEAD: NORMOCEPHALIC, ATRAUMATIC. EYES: PERRLA AND EOMI. ENT: NARES CLEAR. MUCOUS MEMBRANES MOIST. NECK: SUPPLE. CHEST: CLEAR TO AUSCULTATION. NO RESPIRATORY DISTRESS. HEART: REGULAR RATE AND RHYTHM. NORMAL PERIPHERAL PULSES. ABDOMEN: SOFT, NONTENDER, NONDISTENDED. EXTREMITIES: NORMAL RANGE OF MOTION. NO EDEMA. SKIN: WARM, DRY, NO RASH. NEURO: NO FOCAL DEFICITS. ALERT AND ORIENTED X3. PSYCH: NORMAL MOOD AND AFFECT. Course Course Emergency Course: Chart review performed. Patient here with low sodium levels outpatient. Triage vitals show mild HTN, otherwise within normal limits. PCP visit note reviewed on 07/18/23, they noted history of GERD, DM, HTN, CVA, colon cancer. Outpatient lab work shows: 08/21: Sodium of 125, potassium of 5.7, creatinine of 1.55 08/24: Sodium of 126, potassium of 5.3, creatinine of 1.30 Triage lab work today shows: Sodium of 132, potassium of 5.1, Creatinine of 1.6. It appears her prior creatinine ra
--- NOTE | 2023-08-26 14:50 | ECG_ITS ---
SEE SCANNED COPY FOR CONFIRMED REPORT MTDD
[2023-08-26 15:01] VITALS: BP 139/92; PULSE 84; RESP 16; O2SAT 97
[2023-08-26 15:19] VITALS: BP 139/92; PULSE 88; RESP 16; O2SAT 98
== END 2023-08-26 15:20 | disposition home or self-care (01) ==
PROVIDERS: Preventive Medicine Aerospace Medicine; Emergency Provider Student in an Organized Health Care Education/Training Program; PCP Emergency Medicine
DX: E87.1 Hypo-osmolality and hyponatremia (principal); E11.22 Type 2 diabetes mellitus with diabetic chronic kidney disease; I12.9 Hypertensive chronic kidney disease with stage 1 through stage 4 chronic kidney disease, or unspecified chronic kidney disease; N18.9 Chronic kidney disease, unspecified; K22.70 Barrett's esophagus without dysplasia; K21.9 Gastro-esophageal reflux disease without esophagitis; Z86.73 Personal history of transient ischemic attack (TIA), and cerebral infarction without residual deficits; Z79.4 Long term (current) use of insulin; Z79.82 Long term (current) use of aspirin; R94.31 Abnormal electrocardiogram [ECG] [EKG]
CPT/HCPCS: 36415; 80053; 85025; 93005; 99283

== ENCOUNTER 2024-07-17 20:07 | Emergency (ER) | payer OTHER, SELFPAY ==
--- NOTE | ~2024-07-17 | CT_ITS ---
CT cervical spine wo con Ordering provider: Sally Hernandez PA-C History: . syncope . Comparison: October 15, 2022 Technique: CT of the cervical spine was performed without contrast. Sagittal and coronal reformatted images were also obtained and reviewed. Automated exposure control and iterative reconstruction thao hnique were employed. The dose-length product was 319.93 mGy-cm. FINDINGS: VERTEBRAE: No subluxation or acute fracture. The occipital condyles are intact. DISC SPACES: Narrowing of the disc C4-C5, C5-C6, C6-C7 and C7-T1. Multilevel facet joint disease. Mul tilevel uncovertebral joint osteoarthritic changes. Multilevel intervertebral foraminal narrowing. MR I is better for evaluation. PARASPINOUS SOFT TISSUES: Bilateral carotid calcifications. IMPRESSION: No acute osseous abnormality cervical spine. Multilevel degenerative disc disease. Reviewed, dictated and finalized at location A.
--- NOTE | ~2024-07-17 | CT_ITS ---
CT brain wo con Ordering provider: Sally Hernandez History: 68 years Male with . syncope . Comparison: February 20, 2023 Technique: CT of the head without contrast. Radiation reduction technique utilized.The dose-length product was 681 mGy-cm. FINDINGS: BRAIN PARENCHYMA AND CSF SPACES: Mild leukoaraiosis and diffuse cortical atrophy. Mild atheromatous d isease. No midline shift, mass effect or hemorrhage. The brain parenchyma and CSF spaces are otherwi se normal. VISUALIZED PARANASAL SINUSES: Left maxillary sinus disease. MASTOIDS: Well aerated. BONES: The bones appear intact. SOFT TISSUES: Visualized nasopharynx is normal. Superficial soft tissues are normal. IMPRESSION: No acute intracranial findings. Reviewed, dictated and finalized at location A.
--- NOTE | ~2024-07-17 | XR_ITS ---
EXAMINATION: XR chest 2V Exam Date/Time: 07/17/2024 20:25 CDT HISTORY: syncope Comparison: 09/05/2020. RESULT: Lines, tubes, and devices: GE junction surgical clips. Right humeral head soft tissue anchor. Lungs and pleura: Low volumes with significant crowding. Diffuse reticular opacities with indistinct vessels. Cardiomediastinal silhouette: Stable. Other: No acute osseous or upper abdominal finding. IMPRESSION: Mild interstitial edema versus bronchovascular crowding from low volumes. Reviewed, dictated and finalized at location K.
[2024-07-17 20:12] VITALS: BP 153/97; PULSE 67; RESP 16; TEMP 36.4; O2SAT 98
--- NOTE | 2024-07-17 20:21 | ECG_ITS ---
Test Date: 2024-07-17 23:14:05 Measurements Intervals Mckenzie Rate: 70 P: 30 IN: 207 QRS: 5 QRSD: 81 T: 28 QT: 407 QTc: 440 Interpretive Statements SINUS RHYTHM NONSPECIFIC T-WAVE ABNORMALITY No previous ECG available for comparison Electronically Signed On 07-18-2024 13:59:56 CDT by Tyler Aceves D.O
--- OUTSIDE RECORDS SUMMARY | 2024-07-17 21:14 | XMS_ITS | Patient Health Summary ---
Author Organization [facility] Address [address] [place] [address] Care Team Providers Care Line Crewman Name Role Phone James Rebolledo MD Primary Care Provider [phone] Note from [facility],non-owned Affiliates and Associated Physician Practices is amultiple site organization consisting of ambulatory clinics and hospital sitesin [place], [place], [place] and [place]. This disclosure is being madepursuant to the Care Everywhere program and may not contain all information available regarding this patient. Last updated 18.[facility] Allergies No known active allergies Medications * Be aware that medications may not be up to date on this document. Alwaysverify current medications with the patient. * traZODone (DESYREL) 150 MG tablet once daily. * glyBURIDE (DIABETA; MICRONASE) 2.5 MG tablet 2 times daily. * omeprazole (PRILOSEC) 40 MG capsule 2 times daily. * hydrocodone-acetaminophen (VICODIN ES) 7.5-750 MG tablet every 6 hours as needed. * glipiZIDE (GLUCOTROL) 5 MG tablet Take 5 mg by mouth 2 times daily,before breakfast and supper * piroxicam (FELDENE) 20 MG capsule(Started 10/26/2014) Take 1 Cap by mouth once daily 11 refills left * metFORMIN ER 24hr (GLUCOPHAGE XR) 500 MG tablet(Started 10/19/2014) Active Problems Problem Noted Date Diagnosed Date Foraminal stenosis of lumbar region 12/10/2011 Social History Tobacco Use Types Packs/Day Years Used Date Smoking Tobacco: Never Smokeless Tobacco: Never Alcohol Use Standard Drinks/Week Comments Yes 6.7 (1 standard drink = 0.6 oz p ure alcohol) Sex and Gender Information Value Date Recorded Sex Assigned at Not on file Gender Identity Not on file Sexual Orientation Not on file Last Filed Vital Signs Vital Sign Reading Time Taken Comments Blood Pressure 124/70 12/09/2011 1:39 PM CDT Pulse - - Temperature - - Respiratory Rate - - Oxygen Saturation - - Inhaled Oxygen Concentration - - Weight 74.8 kg (165 lb) 10/26/2014 10:53 AM CDT Height 179.1 cm (5' 10.5 ) 10/26/2014 10:53 AM C DT Body Mass Index 23.34 10/26/2014 10:53 AM CDT Procedures * AMB REQUEST FOR SUPPLY/EQUIP(Performed 02/07/2015) * MRI LUMBAR SPINE WO CONTRAST(Performed 09/01/2014) * CULTURE URINE(Performed 04/07/2014) * CULTURE URINE(Performed 09/11/2013) * CULTURE URINE(Performed 09/10/2013) * MRI LUMBAR SPINE WO CONTRAST(Performed 11/20/2011) Results * AMB REQUEST FOR SUPPLY/EQUIP (02/07/2015) Pantera Valenzuela MD GENERAL SUPPLY ORDER [facility] * MRI SPINE LUMBAR NON CONTRAST (09/01/2014) Only the most recent of2 resultswithin the time period is included. Anatomical Region Laterality Modality Spine Other Pantera Valenzuela MD MR ORDERABLES * CULTURE URINE (04/07/2014 9:00 AM WOODWORKING MACHINE OPERATOR) Only the most recent of3 resultswithin the time period is included. Culture Urine No Growth of >100 CFU/ml after 48 Hours [facility] Urine specimen (specimen) URINE SPECIMEN OBTAINED BY CLEAN CATCH PROCEDURE / Unknown 04/07/2014 9:00 AM WOODWORKING MACHINE OPERATOR 04/07/2014 9:46 PM WOODWORKING MACHINE OPERATOR Narrative [facility] - 04/09/2014 11:28 AM WOODWORKING MACHINE OPERATOR CruzSpecimen#[id number] Cruz Loc/Rm/Bed: EXPCARE G// CLN CATCH U Historical Provider LAB - MICRO[place] [address], [facility] [phone] Care Teams Line Crewman Relationship Specialty Start Date End Date James Rebolledo MD [address] [place] [id number] PCP - General 01/02/22
--- OUTSIDE RECORDS SUMMARY | 2024-07-17 21:14 | XMS_ITS | Referral Summary ---
Author Organization [facility] Address [address] [place] [address] Care Team Providers Care Administrative Operations Coordinator Name Role Phone James Rebolledo MD Primary Care Provider [phone] Source Comments [facility],non-owned Affiliates and Associated Physician Practices is amultiple site organization consisting of ambulatory clinics and hospital sitesin [place], [place], [place] and [place]. This disclosure is being madepursuant to the Care Everywhere program and may not contain all information available regarding this patient. Last updated 18.[facility] Allergies No known active allergies Medications * Be aware that medications may not be up to date on this document. Alwaysverify current medications with the patient. Medication Sig Dispensed Refills Start Date End Date Status traZODone (DESYREL) 150 MG tablet once daily. Active glyBURIDE (DIABETA; MICRONASE) 2.5 MG tablet 2 times daily. Active omeprazole (PRILOSEC) 40 MG capsule 2 times daily. Active hydrocodone-acetamino phen (VICODIN ES) 7.5-750 MG tablet every 6 hours as needed. Active glipiZIDE (GLUCOTROL) 5 MG tablet Take 5 mg by mouth 2 times daily,before breakfast and supper Active piroxicam (FELDENE) 20 MG capsule Take 1 Cap by mouth once daily 30 Cap 11 10/26/2014 Active metFORMIN ER 24hr (GLUCOPHAGE XR) 500 MG tablet 0 10/19/2014 Active Active Problems Problem Noted Date Diagnosed Date [...] Mass Index 23.34 10/26/2014 10:53 AM CDT Plan of Treatment Not on file Care Teams Administrative Operations Coordinator Relationship Specialty Start Date End Date James Rebolledo MD [facility] [email or web address] [place] [address] PCP - General 01/02/22
--- OUTSIDE RECORDS SUMMARY | 2024-07-17 21:14 | XMS_ITS | Clinical Summary ---
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 Creatinine Ratio, Urine (11/03/2023 9:54 AM CDT) Albumin Ur <12.0 mg/L Comment: Interpretive Data No reference range established. Current interpretive data was last revised 2018. Creatinine Ur 90.5 mg/dL JOSE LUIS RODRIGUES Comment: Interpretive Data No reference range established. Current interpretive data was last revised 2018. Albumin Creatinine Ratio, Ur <13 1 - 29 mg/g JOSE LUIS Urine 11/03/2023 9:54 AM CDT 11/03/2023 2:41 PM CDT us Jason Cherry MD LAB URINE ORDERABLES Final Result JOSE LUIS [address] Department [place] [address] * (ABNORMAL) Lipid panel (11/03/2023 9:54 AM CDT) Cholesterol 159 30 - 199 mg/dL Comment: Interpretive Data Ages < or = 19 years Acceptable: <170 mg/dL Borderline high: 170-199 mg/dL High: >or= 200 mg/dL Ages > or = 20 years Desirable: <200 mg/dL Borderline high: 200-239 mg/dL High: >or= 240 mg/dL Literature References: 1. Expert Panel on Integrated Guidelines for Cardiovascular Health and Risk Reduction in Children and Adolescents. Pediatrics 2011;128:S213 2. NCEP Expert Panel. Circulation 2004;110:227 Current Interpretive Data was last revised on 2017. Triglycerides 182(H) <=149 mg/dL JOSE LUIS RODRIGUES Comment: Interpretive Data Ages < or = 9 years Acceptable: <75 mg/dL Borderline high: 75-99 mg/dL High: >or= 100 mg/dL Ages 10 to 20 years Acceptable: <90 mg/dL Borderline high: 90-129 mg/dL High: >or= 130 mg/dL Ages > or = 20 years Desirable: <150 mg/dL Borderline high: 150-199 mg/dL High: 200-499 mg/dL Very high: >or= 499 mg/dL Literature References: 1. Expert Panel on Integrated Guidelines for Cardiovascular Health and Risk Reduction in Children and Adolescents. Pediatrics 2011;128:S213 2. NCEP Expert Panel. Circulation 2004;110:227 Current Interpretive Data was last revised on 2017. HDL 43 >=40 mg/dL JOSE LUIS RODRIGUES Comment: Interpretive Data Ages < or = 19 years Acceptable: >45 mg/dL Borderline low: 40-45 mg/dL Low: <40 mg/dL Ages > or = 20 years Desirable: >or= 60 mg/dL Low: <40 mg/dL Literature References: 1. Expert Panel on Integrated Guidelines for Cardiovascular Health and Risk Reduction in Children and Adolescents. Pediatrics 2011;128:S213 2. NCEP Expert Panel. Circulation 2004;110:227 Current Interpretive Data was last revised on 2017. LDL, calculated 80 <=129 mg/dL JOSE LUIS RODRIGUES Comment: Interpretive Data Ages < or = 19 years Acceptable: <110 mg/dL Borderline high: 110-129 mg/dL High: >or= 130 mg/dL Ages > or = 20 years Optimal: <100 mg/dL Near optimal: 100-129 mg/dL Borderline high: 130-159 mg/dL High: >160 mg/dL Literature References: 1. Expert Panel on Integrated Guidelines for Cardiovascular Health and Risk Reduction in Children and Adolescents. Pediatrics 2011;128:S213 2. NCEP Expert Panel. Circulation 2004;110:227 Current Interpretive Data was last revised on 2017. Non-HDL Cholesterol 116 mg/dL JOSE LUIS RODRIGUES Comment: Interpretive Data Ages < or = 19 years Acceptable: <120 mg/dL Borderline high: 120-144 mg/dL High: >145 mg/dL Ages > or = 20 years When triglycerides are >200 mg/dL, Non-HDL cholesterol is a secondary target of therapy with treatment goals that are 30 mg/dL greater than the LDL cholesterol target. Literature References: 1. Expert Panel on Integrated Guidelines for Cardiovascular Health and Risk Reduction in Children and Adolescents. Pediatrics 2011;128:S213 2. NCEP Expert Panel. Circulation 2004;110:227 Current Interpretive Data was last revised on 2017. Chol/HDL ratio 4 JOSE LUIS RODRIGUES Blood 11/03/2023 9:54 AM CDT 11/03/2023 2:41 PM CDT Jason Cherry MD LAB BLOOD ORDERABLES Final Result JOSE LUIS [address] Department [place] [address] * DIABETES EYE EXAM (08/20/2023 2:14 PM CDT) SCRIBED DIABETIC DILATED EYE EXAM Comment:No Diabetic Retinopa thy Historical Provider HEALTH MAINTENANCE Final Result * COLONOSCOPY (12/28/2021 1:03 PM CDT) us Historical Provider HEALTH MAINTENANCE Final Result from Last 3 Months or Most Recently Relevant to Health Maintenance [place] [address] [facility] [place] [address] [facility] Advance Directives For more information, please contact: [phone] * Full Code (Latest Code Status on File) Date Activated Date Inactivated Comments 04/16/2023 8:48 PM 04/25/2023 10:34 PM Care Teams Supervisor Veneer Relationship Specialty Start Date End Date Omari Díaz DO [address] [place] [address] PCP - General Family Medicine 06/22/24 James Rebolledo MD [address] [place] [address] 04/16/23 Miscellaneous, Not In File 04/25/23 Yony Aviles MD [address] [facility] [address] [place] [address] Surgeon Orthopedic Surgery 11/03/23 Huber Yeager MD [facility] [address] [place] [address] Referring Physician Cardiovascular Disease 11/03/23 [place] [address] [facility] [address] [place] [address] Consulting Physician Endocrinology Diabetes & Metabolism 11/03/23 Hortencia Pollock OD [address] [place] [address] Optometry 11/03/23 Amaury Oneil MD [address] [place] [address] Referring Physician Gastroenterology 11/03/23
--- OUTSIDE RECORDS SUMMARY | 2024-07-17 21:14 | XMS_ITS ---
Author Organization [facility] Care Team Providers Care Business Development Associate Name Role Phone James Suggs Unavailable Unavailable Allergies and adverse reactions No Known Allergies Care Team Name Role Address Phone Organization Dates James Suggs PCP [address] [facility] [place], [address], [place] (Office): : [facility] 04/26/2023 - 04/27/2023 Mental Status Section Date Assessment Total Score Description 04/27/2023 CAM 0 No delirium ind icated 04/27/2023 BIMS 14 cognitively int act CAM 0 No delirium ind icated Problems Problem # Description Date of onset Resolved Date Code CodeSystem Concern Status 1 ACUTE KIDNEY FAILURE, UNSPECIFIED 04/25/[address] active 2 ALCOHOL ABUSE, UNCOMPLICATED 04/25/[address] active 3 ATAXIA, UNSPECIFIED 04/25/2023 47846461 SNOM[address] C T active 4 BODY MASS INDEX [BMI] 25.0-25.9, ADULT 04/25/[address] active 5 CHRONIC KIDNEY DISEASE, UNSPECIFIED 04/25/[address] active 6 CHRONIC SINUSITIS, UNSPECIFIED 04/25/[address] active 7 DISPLACED TRIMALLEOLAR FRACTURE OF RIGHT LOWER LEG, SUBSEQUENT ENCOUNTER FOR CLOSED FRACTURE WITH ROUTINE HEALING 04/25/[address] active 8 EPIDEMIC VERTIGO 04/25/[address] active 9 ESSENTIAL (PRIMARY) HYPERTENSION 04/25/[address] active 10 HALFWAY (CURRENT) USE OF INSULIN 04/25/[address] active 11 MIXED HYPERLIPIDEMIA 04/25/[address] active 12 PAIN, UNSPECIFIED 04/25/[address] active 13 REPEATED FALLS 04/25/[address] ac tive 14 TYPE 2 DIABETES MELLITUS WITHOUT COMPLICATIONS 04/25/[address] active Reason for Referral No Reasons for Referral Entered Social History Social History Observation Description Start Date End Date Code Code System Current Smoking Status Tobacco smoking consumption unknown 039382140 SNOMED CT Sex Assigned At Male 1955 [address]6931-9 [facility] Vital Signs Code Code System Vitals Name Values and Units Timing Information 2339-0 [facility] Blood Sugar Tqyie=161.0 Units=mg/dL 04/27/2023 13759-1 [facility] Pain Level Value=0.0 04/27/2023 9279-1 [facility] Respiratory Rate Value=19.0 Units=/m in 04/27/2023 8462-4 [facility] Blood Pressure-Diastolic Value=76 Un its=mmHg 04/27/2023 8480-6 [facility] Blood Pressure-Systolic Igxks=377 Un its=mmHg 04/27/2023 8310-5 [facility] Body Temperature Value=97.8 Units= F 04/27/2023 8867-4 [facility] Heart rate Value=79.0 Units=/min 57380-2 [facility] O2 % BldC Oximetry Value=98.0 Units= % 04/27/2023 24667-6 [facility] Weight Vzaak=948.0 Units=Lbs 8302-2 [facility] Height Value=71.0 Units=Inches 04/26/2023
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
--- OUTSIDE RECORDS SUMMARY | 2024-07-17 21:14 | XMS_ITS | Encounter Summary ---
Author Organization [facility] Address [address] [place] [address] Care Team Providers Care Hospital Chief Executive Officer Name Role Phone James Rebolledo MD Primary Care Provider + [phone] Mishel Pérez PT Unavailable [phone] Jason Cherry MD Primary Care Provider + [phone] James Rebolledo MD Primary Care Provider + [phone] Encounter Details Date Type Department Care Team (Late st Contact Info) Description 11/17/2023 Abstract [facility], [address] [address] Vicente Arroyo MA Social History Tobacco Use Types Packs/Day Years Used Date Smoking Tobacco: Never Smokeless Tobacco: Never Alcohol Use Standard Drinks/Week Comments Yes 0 [...] money to buy more. Never true 02/25/20 Within the past 12 months, t he [...] place to sleep or slept in a long term (including now)? No 02/24/2023 Sex and Gender Information Value Date Recorded Sex Assigned at Male 05/31/2024 10:46 AM APPLICATIONS SUPPORT SPECIALIST Legal Sex Male 11:35 AM CDT Gender Identity Not on file Sexual Orientation Not on file documented as of this encounter Functional Status * Are you deaf or do you have serious difficulty hearing Answer Date of Assessment Author Status No 02/24/2023 4:59 PM CDT Lisa Naranjo R N Active * Are you blind or do you have serious difficulty seeing, even when wearing glasses? Answer Date of Assessment Author Status No 02/24/2023 4:59 PM CDT Lisa Naranjo R N Active * Do you have serious difficulty walking or climbing stairs? Answer Date of Assessment Author Status No 02/24/2023 4:59 PM CDT Lisa Naranjo R N Active * Do you have difficulty dressing or bathing? Answer Date of Assessment Author Status No 02/24/2023 4:59 PM CDT Lisa Naranjo R N Active * Because of a physical, mental, or emotional condition, do you have difficulty doing errands alone such as visiting a doctor's office or shopping? Answer Date of Assessment Author Status No 02/24/2023 4:59 PM CDT Lisa Naranjo R N Active documented as of this encounter Mental Status * Because of a physical, mental, or emotional condition, do you have serious difficulty concentrating, remembering, or making decisions? Answer Entry Date Author Status No 02/24/2023 4:59 PM CDT Lisa Naranjo R N Active documented in this encounter Plan of Treatment Upcoming Encounters Date Type Department Care Team (Late st Contact Info) Description 11/29/2024 10:00 AM CDT Office Visit [facility] [address] [place] [address] Lance Gutierrez MD [facility], [address] [place] [address] documented as of this encounter Goals Goal Patient Goal Type Associated Problems Recent Progress Patient-Stated? Author Health - patient able to perform ADLs independently Lifestyle Nicolle Michel RN documented as of this encounter Procedures Procedure Name Priority Date/Time Associated Diagnosis Comments HEMOGLOBIN, GLYCOSYLATED Routine 08/22/2023 COMPREHENSIVE METABOLIC PANEL Routine 08/22/2023 LIPID PANEL Routine 08/22/2023 documented in this encounter Results * (ABNORMAL) COMPREHENSIVE METABOLIC PANEL (08/22/2023) SODIUM S/P/B 125 GLUCOSE 145 mg/dL AST 16 BUN 14 CREATININE S/P/B 1.55(A) 0.7 - 1.3 CALCIUM S/P/B 9.6 POTASSIUM S/P/B 5.7 CHLORIDE S/P/B 90 ALT 10 GFR ESTIMATE 49 us Default History Genericprovider LABORATORY Final Result * LIPID PANEL (08/22/2023) CHOLESTEROL 197 TRIGLYCERIDES 186 HDL 54 LDL (CALCULATED) 113 NON HDL CHOLESTEROL 143 us Default History Genericprovider LABORATORY Final Result * HEMOGLOBIN, GLYCOSYLATED (08/22/2023) HGB A1C 9.8 % us Default History Genericprovider LABORATORY Final Result documented in this encounter Visit Diagnoses Not on filedocumented in this encounter Care Teams Hospital Chief Executive Officer Relationship Specialty Start Date End Date James Rebolledo MD [address] [place] [address] PCP - General INTERNAL MEDICINE 02/24/23 12/03/23 Jason Cherry MD [address] [place] [address] [address] [place] [address] PCP - General FAMILY PRACTICE 12/04/23 05/30/24 James Rebolledo MD [address] [place] [address] PCP - General INTERNAL MEDICINE 05/31/24 05/31/24 Mishel Pérez, [place] [address] Physical Therapist PHYSICAL THERAPY 02/26/23 02/27/24 documented as of this encounter
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
--- OUTSIDE RECORDS SUMMARY | 2024-07-17 21:14 | XMS_ITS | Clinical Summary ---
Author Organization [facility] [employer] Address [address] [address] Care Team Providers Care Instructional Coordinator Name Role Phone James Rebolledo MD Primary Care Provider [phone] Source Comments [facility] [employer],non-owned Affiliates and Associated Physician Practices is amultiple site organization consisting of ambulatory clinics and hospital sitesin [place], [place], [place] and [place]. This disclosure is being madepursuant to the Care Everywhere program and may not contain all information available regarding this patient. Last updated 18.[facility] [employer] Allergies No known active allergies Medications * [...] 10/26/2014 10:53 AM CDT Plan of Treatment Health Maintenance Due Date Last Done Comments COLOGUARD (AGES 45-75) - COL ON CA SCREENING 1955 COLON MONITORING 1955 COLONOSCOPY - COLON CA SCREENING 1955 CT COLONOGRAPHY - COLON CA SCREENING 1955 Colorectal Cancer Screening 1955 FIT - COLON CA SCREENING 1955 FLEX SIG - COLON CA SCREENING 1955 LIPID TESTING 1955 HEPATITIS C SCREENING 12/17/1975 DTAP/TDAP/TD VACCINES (1 - Tdap) 1976 PNEUMOCOCCAL VACCINE 50+ (1 of 1 - PCV) 12/22/2007 ZOSTER VACCINE (1 of 2) 12/22/2007 COVID-19 VACCINE ( - 2023-2 5 season) 2024 INFLUENZA VACCINE (#1) 2024 DEPRESSION SCREENING 05/05/2024 MEDICARE AWV CALENDAR YEAR 2024 Respiratory Syncytial Virus (RSV) Vaccine Pt: or over 60 yrs (1 - 1-dose 75+ series) 2032 HEPATITIS B VACCINE Aged Out No longe r eligible based on patient's age to complete this topic HIB VACCINE Aged Out No longer eligi ble based on patient's age to complete this topic HPV VACCINE Aged Out No longer eligi ble based on patient's age to complete this topic MENINGOCOCCAL (Group B) VACC INE SHARED DECISION-MAKING Aged Out No longer eligibl e based on patient's age to complete this topic MENINGOCOCCAL GROUPS A/C/Y/W VACCINE Aged Out No longer eligible b ased on patient's age to complete this topic Care Teams Instructional Coordinator Relationship Specialty [place] [address] [place] [address] [address] [place], [place] [id number] PCP - General 01/02/22
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
[2024-07-17 22:05] LABS: Basophils Percent Auto 0.5 % (0.2-1.2); Eosinophils Absolute Auto 0.7 K/mm3 (0-0.3); Eosinophils Percent Auto 9.4 % (0-4.4); Hemoglobin 10.6 g/dL (14.0-18.0); Immature Granulocyte Absolute 0.04 K/mm3 (0.00-0.031); Immature Granulocyte Percent A 0.5 % (0-0.5); Lymphocytes Absolute Auto 1.54 K/mm3 (0.9-3.2); Lymphocytes Percent Auto 20.3 % (18.3-44.2); Mean Corpuscular HGB Conc 31.2 g/dl (32-36); Mean Corpuscular Hemoglobin 24.9 pg (26-34); Mean Corpuscular Volume 79.8 fl (80-100); Mean Platelet Volume 10.2 fl (7.4-10.4); Monocytes Absolute Auto 0.7 K/mm3 (0.1-0.6); Monocytes Percent Auto 8.7 % (2.6-8.5); Neutrophils Absolute Auto 4.6 K/mm3 (1.3-6.7); Neutrophils Percent Auto 60.6 % (45.5-73.1); Platelet Count Result 257 k/mm3 (150-375); Red Blood Count 4.26 M/mm3 (4.6-6.20); Red Cell Distribution Width 15.8 % (11.5-14.5); White Blood Count 7.6 K/mm3 (4.5-10.0)
[2024-07-17 22:06] LABS: Add Urine Microscopic? NO; Appearance Urine Clear (Clear); Bilirubin Urine Negative (Negative); Blood Urine Negative (Negative); Color Urine Yellow (Yellow); Glucose Urine UA Negative (Negative); Ketones Urine Negative (Negative); Leukocyte Esterase Ur Negative LEU/UL (Negative); Nitrate Urine Negative (Negative); Protein Urine Negative (Negative); Specific Grav Ur 1.007 (1.001-1.035); Urobilinogen Urine 0.2 mg/dL (<2.0); pH Urine 5.5 (5.0-9.0)
[2024-07-17 22:13] LABS: Alanine Aminotransferase 16 U/L (6-50); Albumin Level 4.5 g/dL (3.5-5.1); Alkaline Phosphatase 79 U/L (38-126); Anion Gap 19 mmol/L (4-12); Aspartate Amino Transferase 24 U/L (17-59); Bilirubin,Total 0.2 mg/dL (0.2-1.3); Blood Urea Nitrogen 9 mg/dL (9-20); Calcium 9.1 mg/dL (8.4-10.2); Carbon Dioxide 19 mmol/L (22-30); Chloride 99 mmol/L (98-107); Estimated CRCL calculation 63 ml/min; Estimated Glomerular Filt Rate > 60; Glucose 126 mg/dL (65-110); Potassium 3.7 mmol/L (3.4-5.0); Sodium 137 mmol/L (137-145)
[2024-07-17 22:14] LABS: Ethanol 200 mg/dL (<10)
[2024-07-17 22:17] LABS: Prothrombin Time 13.7 Seconds (11.1-14.7)
[2024-07-17 22:18] LABS: Partial Thromboplastin Time 28.6 Seconds (22.3-36.8)
--- NOTE | 2024-07-17 22:18 | ED_ITS ---
HPI - Syncope General Chief Complaint: Syncope Stated Complaint: syncope, etoh Time Seen by Provider: 07/17/24 21:04 Source: patient Mode of arrival: EMS Limitations: intoxication History of Present Illness HPI narrative: This is a 68 year old male that presents to the ER for a syncopal episode. Patient remembers gambling at the [employer]. He does not remember how he ended up at the hospital. Patient had been drinking tonight. He does not have any other complaints. Related Data Home Medications ?Medication ?Instructions ?Recorded ?Confirmed ?Last Taken ?Type aspirin 81 mg chewable tablet 81 mg PO DAILY 03/29/19 06/03/24 04/11/19 History amitriptyline 10 mg tablet 10 mg PO HS 02/20/23 06/03/24 Unknown History trazodone 150 mg tablet 150 mg PO QHS 09/15/23 06/03/24 Unknown History blood-glucose sensor (FreeStyle 06/03/24 06/03/24 Unknown History Alicia 3 Sensor device) diclofenac sodium 1 % topical gel 2 g topical QID 06/03/24 06/03/24 Unknown History (Arthritis Pain (diclofenac)) fluticasone propionate 50 2 spray intranasal BID 06/03/24 06/03/24 Unknown History mcg/actuation nasal spray,suspension insulin syringe-needle U-100 1 mL #10 ea 06/03/24 06/03/24 Unknown History 30 gauge x 1/2 (BD Insulin Syringe Ultra-Fine) meclizine 25 mg tablet 25 mg PO TID PRN 06/03/24 06/03/24 Unknown History metformin 500 mg tablet 1,000 mg PO BID 06/03/24 06/03/24 Unknown History polyethylene glycol ea miscellaneous 06/03/24 06/03/24 Unknown History rosuvastatin 20 mg tablet 20 mg PO DAILY 06/03/24 06/03/24 Unknown History Allergies Allergy/AdvReac Type Severity Reaction Status Date / Time No Known Allergies Allergy Verified 06/03/24 09:27 Review of Systems 2 Review of Systems: ROS unobtainable: Yes unobtainable due to mental status [facility] Past Medical History Medical History (Updated 07/18/24 @ 00:20 by Sally Hernandez PA-C) Right ankle injury Left shoulder strain Right shoulder injury Acute injury of left knee cartilage Tear of right rotator cuff Strain of tendon of left rotator cuff Osteoarthritis of carpometacarpal joint of right thumb Labral tear of long head of left biceps tendon Cerebrovascular accident (CVA) due to thrombosis Weakness of left arm Vitamin D deficiency Trigger thumb, right thumb Trigger thumb, left thumb Primary osteoarthritis of right shoulder Primary osteoarthritis of left shoulder Primary osteoarthritis involving multiple joints Paresthesia of skin Oropharyngeal dysphagia Numbness and tingling in left arm Medial epicondylitis, left elbow 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 Lateral epicondylitis, left elbow Incomplete tear of left rotator cuff Impingement syndrome of left shoulder History of CVA with residual deficit Bursitis of left shoulder Bilateral hand pain Bilateral carpal tunnel syndrome Hernandez's esophagus with dysplasia GERD (gastroesophageal reflux disease) Hypertension Diabetes type 2, controlled CVA (cerebral vascular accident) 08/2017 Surgical History Surgical History H/O pyloroplasty S/P rotator cuff repair History of repair of hiatal hernia S/P ACL repair History of repair of rotator cuff Family History Family History Mother Family history of malignant neoplasm Family history of cardiovascular disease Father Family history of cardiovascular disease Sibling Family history of cardiovascular disease Social History Social History Smoking status: Never smoker Alcohol intake: current Drinks per week: 6 Alcohol use details: social Substance use: never Substance use type: does not use Do You Feel Safe in your Home?: Yes Lack of Transportation: No Current Housing: Decline to Answer Concerned About Future Housing: Decline to Answer Difficulty Paying Gas/Electric Bills: Decline to Answer Difficulty Paying for Meds: Decline to Answer Currently Unemployed: Decline to Answer Education: Decline to Answer Difficulty w/ Childcare or Family Care: Decline to Answer Living arrangements: with family Spiritual care concerns: No Exam 2 Narrative: GENERAL: Well-appearing, well-nourished, and in no acute distress. HEAD: Normocephalic, atraumatic. EYES: PERRLA and EOMI. ENT: Nares clear, no rhinorrhea or epistaxis. Mucous membranes moist. Oropharynx without tonsillar hypertrophy exudate or other lesions. Bilateral TMs pearly mccullough non-bulging NECK: Supple. No adenopathy or masses. CHEST: Clear to auscultation. No respiratory distress. No wheezes rales or rhonchi HEART: Regular rate and rhythm. No murmur heard. Normal peripheral pulses. ABDOMEN: Soft, nontender, nondistended, normal active bowel sounds. EXTREMITIES: Normal range of motion. No edema. Strength equal in bilateral upper and lower extremities (5/5) SKIN: Warm, dry, no rash. NEURO: No focal deficits. Alert and oriented x3. Cranial nerves 2-12 grossly intact PSYCH: Normal mood and affect Course Course Emergency Course: patient and his updated on workup. She will be his sober ride. Patient is ambulatory with a steady gait. Tolerating PO intake Vital Signs Vital signs: Vital Signs Temperature 97.6 F 07/17/24 20:12 Pulse Rate 67 07/17/24 20:12 Respiratory Rate 16 07/17/24 20:12 Blood Pressure 153/97 H 07/17/24 20:12 Pulse Oximetry 98 07/17/24 20:12 Oxygen Delivery Room Air 07/17/24 20:12 Temperature 97.6 F 07/17/24 20:12 Pulse Rate 67 07/17/24 20:12 Respiratory Rate 16 07/17/24 20:12 Blood Pressure 153/97 H 07/17/24 20:12 Pulse Oximetry 98 07/17/24 20:12 Oxygen Delivery Room Air 07/17/24 20:12 MDM - Syncope MDM Narrative Medical decision making narrative: Patient presents the emergency department after drinking tonight and having a syncopal episode. Patient is intoxicated upon arrival, although does not have any focal neurologic deficits. His vitals are stable. CBC shows normocytic anemia hemoglobin of 10.6. Metabolic panel some evidence of dehydration. Patient hydrated and L of IV fluids in the ED. urine without evidence of infection. Drug screen is negative. Patient's alcohol level is 200. CT brain and cervical spine without acute findings. Chest x-ray shows likely low lung volumes. Do not suspect interstitial edema. patient and his updated on workup. She will be his sober ride. Patient is ambulatory with a steady gait. Tolerating PO intake. He is to follow up with PCP. He was given warnings to return to the ER Differential Diagnosis Differential diagnosis: Likely syncope due to orthostatic hypotension, vasovagal syncope, dehydration and other (Alcohol intoxication, subdural hematoma) Lab Data Attestation: I reviewed the patient's lab results. 07/17/24 21:55 07/17/24 21:55 Labs: Lab Results 07/17/24 07/17/24 Range/Units 21:55 21:56 WBC 7.6 (4.5-10.0) K/mm3 RBC 4.26 L (4.6-6.20) M/mm3 Hgb 10.6 L (14.0-18.0) g/dL Hct 34.0 L (42.0-52.0) % MCV 79.8 L (80-100) fl MCH 24.9 L (26-34) pg MCHC 31.2 L (32-36) g/dl RDW 15.8 H (11.5-14.5) % Plt Count 257 (150-375) k/mm3 MPV 10.2 (7.4-10.4) fl Immature Gran % (Auto) 0.5 (0-0.5) % Neut % (Auto) 60.6 (45.5-73.1) % Lymph % (Auto) 20.3 (18.3-44.2) % [place] % (Auto) 8.7 H (2.6-8.5) % Eos % (Auto) 9.4 H (0-4.4) % Baso % (Auto) 0.5 (0.2-1.2) % Lymph # (Auto) 1.54 (0.9-3.2) K/mm3 [place] # (Auto) 0.7 H (0.1-0.6) K/mm3 Eos # (Auto) 0.7 H (0-0.3) K/mm3 Baso # (Auto) 0.0 (0.0-0.1) K/mm3 Abs Immat Gran (auto) 0.04 H (0.00-0.031) K/mm3 Absolute Neuts (auto) 4.6 (1.3-6.7) K/mm3 Absolute Nucleated RBC 0.000 (0.0-0.012) K/mm3 Nucleated RBC % 0.0 (0.0-0.2) % PT 13.7 (11.1-14.7) Seconds INR 1.0 APTT 28.6 (22.3-36.8) Seconds Sodium 137 (137-145) mmol/L Potassium 3.7 (3.4-5.0) mmol/L Chloride 99 (98-107) mmol/L Carbon Dioxide 19 L (22-30) mmol/L Anion Gap 19 H (4-12) mmol/L BUN 9 D (9-20) mg/dL Creatinine 1.09 (0.7-1.3) mg/dL Estim Creat Clear Calc 63 ml/min Estimated GFR > 60 (59 - ) Glucose 126 H (65-110) mg/dL Calcium 9.1 (8.4-10.2) mg/dL Total Bilirubin 0.2 (0.2-1.3) mg/dL AST 24 (17-59) U/L ALT 16 (6-50) U/L Alkaline Phosphatase 79 (38-126) U/L Troponin I < 0.012 (0.000-0.034) ng/mL Total Protein 8.0 (6.3-8.2) g/dL Albumin 4.5 (3.5-5.1) g/dL Urine Color Yellow (Yellow) Urine Appearance Clear (Clear) Urine pH 5.5 (5.0-9.0) Ur Specific [place] 1.007 (1.001-1.035) Urine Protein Negative (Negative) mg/dL Urine Glucose (UA) Negative (Negative) mg/dL Urine Ketones Negative (Negative) mg/dL Ur Blood (Man) Negative (Negative) Urine Nitrate Negative (Negative) Urine Bilirubin Negative (Negative) Urine Urobilinogen 0.2 (<2.0) mg/dL Leukocyte Esterase Rfl Negative (Negative) LINDA/UL Urine Opiates Screen Negative (Negative) Urine Methadone Screen Negative (Negative) Ur Barbiturates Screen Negative (Negative) Ur Phencyclidine Scrn Negative (Negative) Ur Amphetamine Screen Negative (Negative) U Benzodiazepines Scrn Negative (Negative) Urine Cocaine Screen Negative (Negative) U Cannabinoids Screen Negative (Negative) Ethyl Alcohol 200 (<10) mg/dL Imaging Data Radiologist's impression: ITS Impressions Chest X-Ray 07/17/24 20:36 IMPRESSION: Mild interstitial edema versus bronchovascular crowding from low volumes. CT brain: No acute intracranial hemorrhage. No midline shift or mass effect. The territorial mccullough-white matter differentiation is maintained throughout. Age related cerebral volume loss. Periventricular and subcortical white matter hypoattenuation consistent with chronic microangiopathy CT cervical spine: No acute fracture or subluxation of the cervical spine ECG Data EKG #1: ECG completion date: 07/17/24 EKG Interpretation: normal rate, sinus rhythm, no ST changes and normal QT Critical Care Time Critical Care Time Critical Care Time: No Discharge Plan Discharge Clinical Impression: Dehydration Syncope Qualifiers: Syncope type: unspecified Qualified Code(s): R55 - Syncope and collapse Alcohol intoxication Qualifiers: Complication of substance-induced condition: uncomplicated Qualified Code(s): F 10.920 - Alcohol use, unspecified with intoxication, uncomplicated Patient Disposition: Home, Self-Care Condition: Improved Instructions: Dehydration (ED), Syncope (ED), Abuse of Alcohol (ED) Additional Instructions: Return to the emergency department if you experience fever, chest pain, shortness of breath, abdominal pain with nausea and vomiting, weakness, numbness, or any other symptoms that are concerning to you. Rest. Remain well hydrated Follow up with your primary care doctor Patient Language: Russian Prescriptions: No Action metformin 500 mg tablet 1,000 mg PO BID rosuvastatin 20 mg tablet 20 mg PO DAILY (DME) insulin syringe-needle U-100 [BD Insulin Syringe Ultra-Fine] 1 mL 30 gauge x 1/2 syringe See Rx Instructions .ROUTE .MEDSUPPLY Qty: 10 Rx Instructions: As directed fluticasone propionate 50 mcg/actuation spray,suspension 2 spray intranasal BID meclizine 25 mg tablet 25 mg PO TID PRN (DME) FreeStyle Alicia 3 Sensor Device See Rx Instructions .Route Rx Instructions: As directed polyethylene glycol Powder miscellaneous diclofenac sodium [Arthritis Pain (diclofenac)] 1 % gel 2 g topical QID Rx Instructions: apply to single elbow, wrist or hand; for hand includes palm/fingers/back of hand insulin glargine U-300 conc [Toujeo SoloStar U-300 Insulin] 300 unit/mL (1.5 mL) insulin pen See Rx Instructions subcut BID Qty: 4.5 5RF Rx Instructions: 20 units in am and 23 units at night subcutaneously twice a day; insulin lispro [Humalog KwikPen Insulin] 100 unit/mL insulin pen 1 sliding scale dose subcut USEASDIRECTD Qty: 15 5RF Rx Instructions: three times daily before meals sliding scale as directed: 8-14 units TID trazodone 150 mg tablet 150 mg PO QHS Rx Instructions: 150 mg orally every day at bedtime; amitriptyline 10 mg Tablet 10 mg PO HS aspirin 81 mg Tablet,Chewable 81 mg PO DAILY (DME) pen needle, diabetic [UltiCare Pen Needle] 31 gauge x 1/4 needle 0 .ROUTE .MEDSUPPLY Qty: 200 3RF Rx Instructions: Use sub-q bid utd (31g 6mm) blood sugar diagnostic [Contour Next Test Strips] Strip See Rx Instructions .ROUTE .COMPLEX Qty: 200 3RF Dose Instruction: TEST BLOOD SUGARS TWICE A DAY Rx Instructions: TEST BLOOD SUGARS TWICE A DAY azelastine 137 mcg (0.1 %) aerosol,spray See Rx Instructions .ROUTE .COMPLEX Qty: 30 12RF Dose Instruction: INSTILL 1 SPRAY IN EACH NOSTRIL EVERY 12 HOURS Rx Instructions: INSTILL 1 SPRAY IN EACH NOSTRIL EVERY 12 HOURS omeprazole 40 mg capsule,delayed release(DR/EC) See Rx Instructions .ROUTE .COMPLEX Qty: 180 2RF Dose Instruction: TAKE 1 CAPSULE BY MOUTH TWICE A DAY Rx Instructions: TAKE 1 CAPSULE BY MOUTH TWICE A DAY Follow-up/Referrals: UNKNOWN,DOCTOR [Primary Care Provider] -
--- NOTE | 2024-07-17 22:18 | PC.NURSE ---
This RN tried calling pt . pt did not answer
[2024-07-17 22:21] LABS: Amphetamine Screen Urine Negative (Negative); Barbiturate Screen Urine Negative (Negative); Benzodiazepines Screen Urine Negative (Negative); Cannabinoid Screen Urine Negative (Negative); Cocaine Screen Urine Negative (Negative); Methadone Screen Urine Negative (Negative); Opiate Screen Urine Negative (Negative); Phencyclidine Screen Urine Negative (Negative)
[2024-07-17 22:29] LABS: Troponin I < 0.012 ng/mL (0.000-0.034)
[2024-07-17] MEDS: SODIUM CHLORIDE 0.9% IV 1,000 ML 999 ML IV CONT (23:24)
[2024-07-18 00:43] VITALS: BP 134/85; PULSE 81; RESP 16; O2SAT 99
[2024-07-18 00:45] VITALS: BP 134/85; PULSE 81; RESP 16; O2SAT 99
== END 2024-07-18 00:48 | disposition home or self-care (01) ==
PROVIDERS: Emergency Provider Physician Assistant
DX: R55 Syncope and collapse (principal); E86.0 Dehydration; F10.129 Alcohol abuse with intoxication, unspecified; Y90.7 Blood alcohol level of 200-239 mg/100 ml; I10 Essential (primary) hypertension; E55.9 Vitamin D deficiency, unspecified; E11.9 Type 2 diabetes mellitus without complications; M18.9 Osteoarthritis of first carpometacarpal joint, unspecified; M19.012 Primary osteoarthritis, left shoulder; M19.011 Primary osteoarthritis, right shoulder; K22.719 Barrett's esophagus with dysplasia, unspecified; K21.9 Gastro-esophageal reflux disease without esophagitis; Z86.73 Personal history of transient ischemic attack (TIA), and cerebral infarction without residual deficits; Z79.4 Long term (current) use of insulin; Z79.84 Long term (current) use of oral hypoglycemic drugs; Z79.82 Long term (current) use of aspirin; Z79.899 Other long term (current) drug therapy
CPT/HCPCS: 36415; 70450; 71046; 72125; 80053; 80307; 81003; 82077; 84484; 85025; 85610; 85730; 93005; 96360; 99284; J7030

== ENCOUNTER 2024-10-18 08:47 | Outpatient (CLI) | payer OTHER, SELFPAY ==
--- OUTSIDE RECORDS SUMMARY | 2024-10-18 09:00 | XMS_ITS | Clinical Summary ---
Author Organization [facility] Address [address] [place] [address] Care Team Providers Care [employer] Name Role Phone James Rebolledo MD Primary Care Provider [phone] Source Comments [facility],non-owned Affiliates and Associated Physician Practices is amultiple site organization consisting of ambulatory clinics and hospital sitesin [place], [place] and [place]. This disclosure is being madepursuant to the Care Everywhere program and may not contain all information available regarding this patient. Last updated 18.[facility] Allergies No known active allergies Medications * Be aware that medications may not be up to date on this document. Alwaysverify current medications with the patient. traZODone (DESYREL) 150 MG tablet once daily. Active glyBURIDE (DIABETA; MICRONASE) 2.5 MG tablet 2 times daily. Activ e omeprazole (PRILOSEC) 40 MG capsule 2 times daily. Acti ve hydrocodone-aniya taminophen (VICODIN ES) 7.5-750 MG tablet every 6 hours as needed. Active glipiZIDE (GLUCOTROL) 5 MG tablet Take 5 mg by mouth 2 times daily,before breakfast and supper Active piroxicam (FELDENE) 20 MG capsule Take 1 Cap by mouth once daily 30 Cap 11 5 Active metFORMIN ER 24hr (GLUCOPHAGE XR) 500 MG tablet 0 5 Active Active Problems Problem Noted Date Diagnosed Date Foraminal stenosis of lumbar region 12/10/2011 Social History Tobacco Use Types Packs/Day Years Used Date Smoking Tobacco: Never Smokeless Tobacco: Never Alcohol Use Standard Drinks/Week Comments Yes 6.7 (1 standard drink = 0.6 oz p ure alcohol) Sex and Gender Information Value Date Recorded Sex Assigned at Not on file Legal Sex Male 1:57 PM [employer] Gender Identity Not on file Sexual Orientation Not on file Occupation Industry Job Start Date Job End Date DISABLED Not on file Not on file Not on file Last Filed Vital Signs Vital Sign Reading Time Taken Comments Blood Pressure 124/70 12/09/2011 1:39 PM CDT Pulse - - Temperature - - Respiratory Rate - - Oxygen Saturation - - Inhaled Oxygen Concentration - - Weight 74.8 kg (165 lb) 10/26/2014 10:53 AM CDT Height 179.1 cm (5' 10.5) 10/26/2014 10:53 AM C DT Body Mass [...] VACCINE ( - 2023-2 5 season) 2024 DEPRESSION SCREENING 05/05/2024 INFLUENZA VACCINE (Season Ended) 2025 Respiratory Syncytial Virus (RSV) Vaccine Pt: or [...] on patient's age to complete this topic Insurance [employer] [place] [phone] [employer] Care Teams [employer] Relationship Specialty Start Date End Date James Rebolledo MD [address] [place] [address] [address] [place] [phone] PCP - General 01/02/22
--- OUTSIDE RECORDS SUMMARY | 2024-10-18 09:00 | XMS_ITS ---
Author Name Gloria REYNOSO, MRS. [place] np[place] Address [address] [place] [address] [place] [address] Phone [phone] Organization [facility] Care Team Providers Care [employer] Name Role Phone Afsaneh Castro Unavailable [phone] ULISES MEZA Unavailable [phone] CORRY YEAGER Unavailable [phone] Vanessa Olsen Unavailable [phone] [facility] ([facility]), Sally Walk Unavailable Unavailable Reason for Referral Not Available Allergies, adverse reactions, alerts No known allergies History of medication use Medication Class Instructions Start Date End Date Amitriptyline 10 mg Tab 1 tablet orally daily at bedtime 2024-04-22 No Data Available Azelastine 137 MCG/SPRAY Solution [...] nostril as needed 2024-04-22 No Data Available Omeprazole 40 mg Cap delayed rel Take 1 cap by mouth BID 2024-04-22 No Data Availabl e Rosuvastatin Calcium 20 mg Tab 1 tablet orally daily 2024-04-22 No Data Available traZODone 150 mg Tab 1 tablet orally samuel ly at bedtime 2024-04-22 No Data Available Aspirin 81 mg Tab delayed rel 1 tablet every day 04-22 No Data Available Ibuprofen 200 mg Tab 1 tablet orally twice a day 04-23 No Data Available Semglee (yfgn) 100 UNIT/ML Solution Pen-injector Subcutaneous inject 18 units subcutaneous AM and PM 2024-08-12 No Data Available HumaLOG KwikPen 100 UNIT/ML Solution Pen-injector USE DIRECTED THREE TIMES DAILY BEFORE MEALS SLIDING SCALE DIRECTED: 8-14 UNITS 3 TIMES A DAY 2024-06-03 No Data Available BD INS SYRN UF 1 ML 30G 12.7MM USE TO INJECT FIASP 2023-12-16 No Data Available metFORMIN ER 500 mg Tab ER 24hr TAKE TWO TABLETS BY MOUTH EVERY MORNING AND 1 TABLET BY MOUTH EVERY EVENING 2023-08-27 No Data Available Problem List Problem Status Onset Date Resolved Date Synopsis Type 2 diabetes mellitus Active 2024-04-23 N/A N/A GERD (gastroesophageal reflux disease) Active N/A N/A Constipation Active 2024-04-23 N/A N/A HTN (hypertension) Active 2024-04-23 N/A N/A Allergic rhinitis Active 2024-04-23 N/A N/A Insomnia Active 2024-04-23 N/A N/A HLD (hyperlipidemia) Active 2024-04-23 N/A N/A Depression Active 2024-04-23 N/A N/A Hernandez esophagus Active 2024-08-12 N/A N/A Encounters Encounters Type Facility Date of [...] (primary) hypertensionAllergic rhinitis, unspecifiedInsomnia, unspecifiedHyperlipidemia, unspecifiedDepression, unspecified Outpatient visit for evaluation and management of established patient, including medically appropriate examination and moderate level of medical decision making, total time 30-39 minutes [facility] [place] 08/12/2024 Type 2 diabetes michelle itus without complicationsEssential (primary) hypertensionHyperlipidemia, unspecifiedInsomnia, unspecifiedBarrett's esophagus without dysplasiaConstipation, unspecified Outpatient visit for evaluation and management of established patient, including medically appropriate examination and moderate level of medical decision making, total time 30-39 minutes [facility] [place] 08/12/2024 Essential (primary) hypertension Vital Signs Date of Collection Vitals 2024-04-23 [...] tive Time Current Smoking Status Never smoker 2024-10-03 8 Sex Male History of Procedures Procedures Service Procedure code Service date Servicing provider Phone# Home visit for evaluation and management of new patient requiring medically appropriate examination and moderate level of medical decision making. If using time, at least 60 minutes [place] on enco [id number] 2024-04-23 No Data Available No Data Availa ble Outpatient visit for evaluation and management of established patient, including medically appropriate examination and moderate level of medical decision making, total time 30-39 minutes [id number] 2024-08-12 No Data Available No Data Availa ble Advance care planning discussion documented in medical record [id number] 2024-08-12 No Data Available No Data Avai lable Functional Status Functional Category Effective Dates still drives 2024-04-23 Mental Status Status Date no cognitive issues 2024-04-23 Assessments Date of Service Assessments 2024-04-23 14:23:00 Type 2 diabetes michelle itusGERD (gastroesophageal reflux disease)ConstipationHTN (hypertension)Allergic rhinitisInsomniaHLD (hyperlipidemia)Depression 2024-08-12 08:15:00 Type 2 diabetes michelle itusHTN (hypertension)HLD (hyperlipidemia)InsomniaBarrett esophagusConstipation Plan of Care Date of Service Plans 2024-04-23 14:23:00 PCP f/u Q3 monthsEye exams - ardiology - Dr. Yeager; next follow up 05/2024uncontrolledcontinue [...] heart healthy dietchronic; stablecontinue duloxetineManaged by PCP 2024-08-12 08:15:00 uncontrolled; no rec ent A1C availablelabs drawn yesterday at PCP office; unavailable for reviewcontinue metformin ER 500 mg 2 tablets in the AM and PMcontinue Semglee insulin 18 units in the AM and PMcontinue Humalog Kwikpen SS 3 x a dayEndocrine appt 5chronicamlodipine was discontinued by cardiologymonitor BP at homemanaged by cardiologystable with elevated Triglycerides 155continue rosuvastatin 20 mg dailyheart healthy dietchronic; stablecontinue amitriptyline 10 mg at bedtime and trazodone 150 mg at bedtimemanaged by PCPchronic; stablecontinue omeprazole 40 mg BIDmanaged by GIchronic; stablecontinue stool softenerdiscontinue prune juice as it has a lot of sugar which could be affecting his blood sugar levelsrecommend OTC fiber gummies or other fiber supplementscontinue drinking water Goals Date Goal 2024-04-23 Will be calling [facility] - needs to find a new PCP. At the start of the new year, current PCP will not be accepting [facility]. Health Concerns Date Concern 2024-08-12 This visit was provi ded through telemedicine with audio and visualPatient verbally provided informed consent for this visit to be conducted via telemedicine assisted by BRITTNY Mondragon, with audio and visualLocation of patient: [place] of clinician[place] Aleksander mcdonald in [place] includes the [facility] participating in telemedicine service and their role in the encounter: Afsaneh Castro PA-C; Inge Garcia NP; BRITTNY Mondragon 2024-08-12 Patient reports sung adorno seen by his PCP yesterday and changed were made to his insulin sliding scale as well as his Semglee. BS's have been elevated with highest at 390. Endocrinology appt is 11/06/2024. Will be calling to try to get in sooner or placed on a waitlist 2024-08-12 Amlodipine was disco ntinued by cardiology. 2024-08-12 Constipation - weane d off laxative; drinks prune juice and stool softener. Has tried Miralax in the past and not effective.
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
== END 2024-10-18 08:48 | disposition home or self-care (01) ==
PROVIDERS: PCP Nurse Practitioner Family; Visit Provider Nurse Practitioner Family
DX: H93.19 Tinnitus, unspecified ear (principal); H90.3 Sensorineural hearing loss, bilateral
CPT/HCPCS: 92557; 92567

== ENCOUNTER 2025-01-25 01:52 | Day surgery (SDC) | payer OTHER, SELFPAY ==
--- OUTSIDE RECORDS SUMMARY | 2009-06-14 19:00 | XMS_ITS | Continuity of Care Document ---
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 Name Role Phone Isha Johnson MD Unavailable Unavailable Procedures Procedure Date No Charge Subsequent Hospital Care Subsequent Hospital Care Subsequent Hospital Care Initial Inpatient Consult Subsequent Hospital Care Subsequent Hospital Care Subsequent Hospital Care Subsequent Hospital Care Subsequent Hospital Care Advance Directives Directive Yes / No Effective Date File Name No Information Encounters Encounter Description Practice Location Reason(s) For Visit Diagnoses Date Provider Providers Copied on Encounter [facility], [address] [place] [address], [id number], tel:[phone] [facility] No Information 0 Elizabeth Vieira. [address], [place], [place], [id number] , [place]. [phone] Referring Provider: James Gutierrez, [address] [place] [address], [id number]. tel:[phone] Subsequent Hospital Care [facility], [address], [address], tel:[phone] [facility] Hyperkalemia, HyperpotassemiaHy potensionAcute Kidney Failure UnspAcidosis Metabolic Feb- 2201 0 Elizabeth Vieira. [address], [facility], [place], [place], [id number] , [place]. tel:[phone] Referring Provider: James Gutierrez, [address] [place] [address], [id number]. tel:[phone] Subsequent Hospital Care [facility], [address] [place] [address], [place], [address], [phone] [place] [address] Acute Kidney Failure UnspHyperkalemia, HyperpotassemiaHy potensionAcidosis Metabolic Feb-0 2-201 0 Elizabeth Vieira. [address] [facility], [facility] [place], [id number] , . [phone] Referring Provider: James Gutierrez, [address] [place] [address], [id number]. tel:[phone] Subsequent [facility], [address] [place] [address], [place], [address], tel:[phone] [facility] Acute Kidney Failure UnspHyperkalemia, HyperpotassemiaHy potensionAcidosis Metabolic Feb-0 2-201 0 Elizabeth Vieira. [address], [facility] [place], [id number] , . [phone] Referring Provider: James Gutierrez, [address] [place] [address], [id number]. tel:[phone] Family History Family Member Type Diagnosis Age At Onset No Information Payers Payer name Insurance type Covered green party ID Isiah pittman(s) BC BS PPO BL [id number] Social History Type Description Quantity Date Captured Comments Sex Male Smoking Status No Information Chief Complaint And Reason For Visit No Information History Of Present Illness Encounter Date Complaint History Of Prese nt Illness No Information Instructions Date Instruction Additional Infor mation No Information Assessments Type Assessment Date No Information
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
--- OUTSIDE RECORDS SUMMARY | 2025-01-25 01:54 | XMS_ITS | Encounter Summary ---
Author Organization [facility] Address [address] [place] [address] Care Team Providers Care Iron Melter Name Role Phone James Rebolledo MD Primary Care Provider + [phone] Mishel Pérez PT Unavailable [phone] Jason Cherry MD Primary Care Provider + [phone] James Rebolledo MD Primary Care Provider + [phone] Omari Díaz DO Primary Care Provider [phone] Encounter Details Date Type Department Care Team (Late st Contact Info) Description 11/17/2023 Abstract [facility] [address] Vicente Arroyo MA Social History Tobacco Use [...] place to sleep or slept in a [place] health care facility (including now)? 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 Answer Date of Assessment Author Status No 02/24/2023 4:59 PM CDLisa Davila R N Active documented as of this encounter Mental Status * Because of a physical, mental, or emotional condition, do you have serious difficulty concentrating, remembering, or making decisions? Answer Entry Date Author Status No 02/24/2023 4:59 PM CDLisa Davila R N Active documented in this encounter Plan of Treatment Upcoming Encounters Date Type Department Care Team (Late st Contact Info) Description 05/30/2025 10:00 AM PLUSH FINISHER Office Visit [facility] [address] [place], [place] [id number] Lance Gutierrez MD [facility], [address] [place] [address] documented as of this encounter Goals Goal Patient Goal Type Associated Problems Recent Progress Patient-Stated? Author Health - patient able to perform ADLs independently Lifestyle Nicolle Michel RN documented as of this encounter Procedures Procedure Name Priority Date/Time Associated Diagnosis Comments COMPREHENSIVE METABOLIC PANEL Routine 07/21/2024 LIPID PANEL Routine 07/21/2024 CBC, MANUAL DIFF Routine 07/21/2024 VITAMIN D, 25 OH Routine 07/21/2024 HEMOGLOBIN, GLYCOSYLATED Routine 08/22/2023 COMPREHENSIVE METABOLIC PANEL Routine 08/22/2023 LIPID PANEL Routine 08/22/2023 documented in this encounter Results * VITAMIN D, 25 OH (07/21/2024) VITAMIN D 25 HYDROXY S/P/B 31 07/21/2024 us Default History Genericprovider LABORATORY Final Result * COMPREHENSIVE METABOLIC PANEL (07/21/2024) SODIUM S/P/B 138 GLUCOSE 154 mg/dL AST 16 BUN 14 CREATININE S/P/B 1.17 0.7 - 1.3 CALCIUM S/P/B 9.8 POTASSIUM S/P/B 4.5 CHLORIDE S/P/B 99 ALT 11 GFR ESTIMATE 69 us Default History Genericprovider LABORATORY Final Result * LIPID PANEL (07/21/2024) CHOLESTEROL 119 TRIGLYCERIDES 155 HDL 52 LDL (CALCULATED) 44 NON HDL CHOLESTEROL 67 us Default History Genericprovider LABORATORY Final Result * CBC, MANUAL DIFF (07/21/2024) Pathologist [facility] WBC 8.4 HGB 11.3 HCT 37.3 PLT 274 us Default History Genericprovider LABORATORY Final Result * (ABNORMAL) COMPREHENSIVE METABOLIC PANEL (08/22/2023) SODIUM [...] on filedocumented in this encounter Care Teams Iron Melter Relationship Specialty Start Date End Date James Rebolledo MD [address] [place] [address] PCP - General INTERNAL MEDICINE 02/24/23 12/03/23 Jason Cherry MD [address] [place] [address] [address] [place] [address] PCP - General FAMILY PRACTICE 12/04/23 05/30/24 James Rebolledo MD [address] [place] [address] PCP - General INTERNAL MEDICINE 05/31/24 05/31/24 Omari Díaz DO [address] [place] [address] PCP - General FAMILY PRACTICE 10/03/24 Mishel Pérez, [place] [address] Physical Therapist PHYSICAL THERAPY 02/26/23 02/27/24 documented as of this encounter
--- OUTSIDE RECORDS SUMMARY | 2025-01-25 01:54 | XMS_ITS ---
Author Name Gloria REYNOSO, MRS. [facility] npal Address [address] [place] [address] [place] [address] Phone [phone] Organization [facility] Care Team Providers Care Family Nurse Name Role Phone Afsaneh Castro Unavailable [phone] Marina Figueroa Unavailable [phone] [facility] Tier 2 RN (STL)Renetta Unavailable Unavailable Unavailable Unavailable ULISES MEZA Unavailable [phone] CORRY YEAGER Unavailable [phone] Vanessa Olsen Unavailable [phone] [facility] CHW (STL)Sally Unavailable Unavailable Reason for Referral Not Available [...] MOUTH EVERY EVENING 2023-08-27 No Data Available Montelukast Sodium 10 mg Tab 1 tablet orally daily 09-09-27 No Data Available Problem List Problem Status [...] decision making, total time 30-39 minutes [facility] 08/12/2024 Essential (primary) hypertension Home visit for evaluation and management of established patient requiring medically appropriate examination and low level of medical decision making. If using time, at least 30 minutes total time on e [facility] [place] 11/29/2024 Type 2 diabetes michelle itus without complicationsEssential (primary) hypertensionHyperlipidemia, unspecifiedInsomnia, unspecifiedBarrett's esophagus without dysplasiaDepression, unspecifiedBody mass index (BMI) 24.0-24.9, adult Home visit for evaluation and management of established patient requiring medically appropriate examination and low level of medical decision making. If using time, at least 30 minutes total time on e [facility] [place] 11/29/2024 Essential (primary) hypertension Home visit for evaluation and management of established patient requiring medically appropriate examination and low level of medical decision making. If using time, at least 30 minutes total time on e [facility] [place] 11/29/2024 Essential (primary) hypertension Home visit for evaluation and management of established patient requiring medically appropriate examination and low level of medical decision making. If using time, at least 30 minutes total time on e [facility] 11/29/2024 Type 2 diabetes michelle itus without complications Home visit for evaluation and management of established patient requiring medically appropriate examination and low level of medical decision making. If using time, at least 30 minutes total time on e [facility] 11/29/2024 Encounter for screen ing for depression Vital Signs Date of Collection Vitals 2024-04-23 14:23:00 Height - 180.34 cmWe ight - 84.37 kgBody Mass Index (BMI) - 25.94 kg/m2BP Diastolic - 84.0 mm[Hg]BP Systolic - 148.0 mm[Hg]Heart Rate - 71.0 /minRespiratory Rate - 16.0 /minBody Temperature - 37.22 CelO2 % BldC Oximetry - 93.0 % 2024-11-29 10:30:00 Weight - 78.7 kgBody Mass Index (BMI) - 24.2 kg/m2BP Diastolic - 82.0 mm[Hg]BP Systolic - 134.0 mm[Hg]Heart Rate - 18.0 /minRespiratory Rate - 18.0 /minBody Temperature - 36.28 CelO2 % BldC Oximetry - 96.0 % Social History Social History Social History Observation Description Effec tive Time Current Smoking Status Never smoker 2025-01-04 3 Sex Male History of Procedures Procedures Service Procedure code Service date Servicing provider Phone# Home visit for evaluation and management of new patient requiring medically appropriate examination and moderate level of medical decision making. If using time, at least 60 minutes [place] on enco [id number] 2024-04-23 No Data Available No Data Availa ble Outpatient visit for evaluation and management of established patient, including medically appropriate examination and moderate level of medical decision making, total time 30-39 minutes [id number] 2024-08-12 No Data Available No Data Availa ble Advance care planning discussion documented in medical record [id number] 2024-08-12 No Data Available No Data Avai lable Home visit for evaluation and management of established patient requiring medically appropriate examination and low level of medical decision making. If using time, at least [place] [id number] 2024-11-29 No Data Available No Data Availa ble Most recent systolic blood pressure 130 -139 mm Hg [id number] 2024-11-29 No Data Available No Data Availa ble Most recent dystolic blood pressure 80-89 mm Hg [id number] 2024-11-29 No Data Available No Data Availa ble Functional status assessed [id number] 2024-11-29 No Data Available No Data Availa ble No Data Available [id number] 2024-11-29 No Data Available No Data Available Functional Status Functional Category Effective Dates still drives 2024-04-23 Mental Status Status Date no cognitive issues 2024-04-23 Assessments Date of Service Assessments 2024-04-23 14:23:00 Type 2 diabetes michelle itusGERD (gastroesophageal reflux disease)ConstipationHTN (hypertension)Allergic rhinitisInsomniaHLD (hyperlipidemia)Depression 2024-08-12 08:15:00 Type 2 diabetes michelle itusHTN (hypertension)HLD (hyperlipidemia)InsomniaBarrett esophagusConstipation 2024-11-29 10:30:00 Type 2 diabetes michelle itusHTN (hypertension)HLD (hyperlipidemia)InsomniaBarrett esophagusDepression Plan of Care Date of Service Plans [...] Kwikpen SS 3 x a dayEndocrine appt 11/06/2024hronicamlodipine was discontinued by cardiologymonitor BP at homemanaged [...] gummies or other fiber supplementscontinue drinking water 2024-11-29 10:30:00 PCP 02/10, just saw c ardiology this morning and saw endocrinology on 11/06/24.Recent A1C drawn - unsure of results. Not available for my view. Takes metformin ER 1000mg BID, semglee insulin 18 units BID, and humalog pen SS TID. Sees endocrinology. Continue taking medications as prescribed and F/U as directed.Controlled today. BP slighty elevated at visit, but stated his reading this morning was in 120's systolic. Continue taking medications as prescribed and F/U as directed.Takes rosuvastatin 20mg daily. Continue taking medications as prescribed and F/U as directed.Takes amitriptyline 10 mg at bedtime and trazodone 150 mg at bedtime. Continue taking medications as prescribed and F/U as directed.Stable. Sees GI. Takes omeprazole 40mg BID. Continue taking medications as prescribed and F/U as directed.Controlled. Takes duloxetine 60mg daily. Continue taking medications as prescribed and F/U as directed. Goals Date Goal 2024-04-23 Will be calling [employer] [facility] Medical needs to find a new PCP. At the start of the new year, current PCP will not be accepting [employer]. 2024-11-29 Enrolled in [facility]. RN to F/U telephonically. Patient is aware RN's will be calling. 2024-11-29 SW referral placed t o look into denial of insulin pump. Patient aware that they will be calling. 2024-11-29 [facility] has [facility] to reach out if needs arise. Health Concerns Date Concern 2024-11-29 Your patient, Kirit Lema, 59, has been enrolled in [facility]. [facility] Home is care by a physician and/or advanced practice provider in-home or virtual as an extension of your primary care. We also have registered nurses, pharmacists, community health workers, and social workers that assist with your patient as needed. Please note that your patient will remain attributed to you. If you have any questions, please reach out directly to our team at the phone number above. We will be setting up care conferences with your practice if you want to attend those or we can set up individual care conferences at a more convenient time. Kirit Lema is being seen today through our [facility] program to complete a comprehensive exam. Privacy Practices were agreed upon and signed. This visit is to assist with complex patient care and assist your team in closing any care gaps. Today the following gaps/needs have been identified:Acute concerns addressed today:No acute health concernsEndocrinologist recommended insulin pump, but it was denied by [employer]. 2024-11-29 Medication Changes:N one 2024-11-29 Follow Up Recommenda tions:Routine kaiako kohanga reo F/U for Tier 2. 2024-11-29 Patient is a 68yr ol d male. They are being seen today for a [facility] comprehensive exam. Patient denies any current concerns or symptoms. They deny any recent hospitalizations, illness, injury, or falls. Current diagnoses and medications are as listed below. Patient lives with spouse. They are independent with their care. They do not use any form of assistive device for ambulation. Patient states he feels well overall.
--- OUTSIDE RECORDS SUMMARY | 2025-01-25 01:54 | XMS_ITS | Clinical Summary ---
Author Organization [facility] Address [address] [place] [address] Care Team Providers Care Microfilm Equipment Inspector Name Role Phone Omari Díaz DO Primary Care Provider [phone] Allergies No known active allergies Medications azelastine (ASTELIN) 0.1 % nasal spray 1 spray by Nasal route 2 (two) times daily. Use in each nostril as directed Active fluticasone propionate (FLONASE) 50 MCG/ACT nasal spray 2 sprays by Each Nostril route 2 (two) times daily. Active aspirin EC (ECOTRIN) 81 MG tablet Take 1 tablet (81 mg total) by mouth daily. Active montelukast (SINGULAIR) 10 MG tablet Take 1 tablet (10 mg total) by mouth nightly at bedtime. Active omeprazole (PRILOSEC) 40 MG capsule Take 1 capsule (40 mg total) by mouth 2 (two) times a day. Active traZODone (DESYREL) 150 MG tablet Take 1 tablet (150 mg total) by mouth nightly at bedtime. Active rosuvastatin (CRESTOR) 20 MG tablet Take 1 tablet (20 mg total) by mouth nightly at bedtime. 90 tablet 3 11/19/2023 Active Insulin Glargine Solostar 300 UNIT/ML Solution Pen-injector Inject into the skin 2 (two) times daily. 06/04/2024 Active HUMALOG KWIKPEN 100 UNIT/ML injection (PEN) Inject into the skin 3 (three) times daily before meals. Sliding scale 06/03/2024 Active metFORMIN ER (GLUCOPHAGE-XR) 500 MG 24 hr tablet Take 2 tablets (1,000 mg total) by mouth 2 (two) times daily. Active DULoxetine (CYMBALTA) 60 MG capsule Take 1 capsule (60 mg total) by mouth daily. Active amitriptyline (ELAVIL) 10 MG tablet Take 1 tablet (10 mg total) by mouth nightly at bedtime. 11/08/2024 Active Active Problems Problem Noted Date Diagnosed [...] Cr 1.3, good UOP - Consider RESOLVED Primary hypertension 04/16/2023 Overview (09/30/2023): Last Assessment & Plan: [...] on 05/07/[address] Kumar located at [facility] Type 2 diabetes mellitus, wi th long-term current use of insulin ([facility]) 04/16/2023 Overview (09/30/2023): Last Assessment & Plan: [...] Encounters Date Type Department Care Team Description 11/29/2024 10:00 AM CDT Office Visit [facility] [address] [facility] [address] [place] [address] Lance Gutierrez MD Hypertension (6mo follow up); Lipids; Cva 11/29/2024 Travel from Last 3 Months Immunizations Immunization Administration Dates Next Due Fluzone Intradermal Quad [...] place to sleep or slept in a fpc (including now)? 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 Legal Sex Male 11:35 AM CDT Gender Identity Not on file Sexual Orientation Not on file Last Filed Vital Signs Vital Sign Reading Time Taken Comments Blood Pressure 126/82 11/29/2024 9:35 AM CDT Pulse 77 11/29/2024 9:35 AM CDT Temperature 36.8 C (98.3 F) 02/26/2023 11:14 AM CDT Respiratory Rate 18 02/26/2023 11:14 AM CDT Oxygen Saturation 97% 11/29/2024 9:35 AM CDT Inhaled Oxygen Concentration - - Weight 78.5 kg (173 lb) 11/29/2024 9:35 AM CDT Height 180.3 cm (5' 11) 11/29/2024 9:35 AM CDT Body Mass Index 24.13 11/29/2024 9:35 AM CDT Plan of Treatment Upcoming Encounters Date Type Department Care Team (Late st Contact Info) Description 05/30/2025 10:00 AM BLUEPRINTER Office Visit [facility] [place] [address] Lance Gutierrez MD [facility], [address] [place], [place] [id number] Health Maintenance Due Date Last Done Comments Colorectal Cancer Screening Colonoscopy (10 Years) 1955 Kidney Health Evaluation 1955 Diabetes: Retinopathy Eye Exam 12/22/1975 Hepatitis C 12/22/1975 RSV Immunization or 60+ Years (1 - Risk 60-74 years 1-dose series) 2017 Annual Medicare Wellness Visit 2022 Hemoglobin A1C 11/21/2023 08/22/2023, 04/18/2023 Pneumococcal Vaccine: 50+ Years (3 of 3 - PCV20 or PCV21) 12/25/2023 12/24/2018, 12/03/2017 DTaP, Tdap and Td Vaccines ( 2 - Td or Tdap) 11/14/2024 11/14/2014 COVID-19 Vaccine (4 - 2024-2 6 season) 2025 03/01/2022, 08/08/2020, 07/06/2020 Lipid Panel 07/21/2025 07/21/2024, 08/22/2023, 02/25/2023 Zoster Vaccines Completed 07/07/2018, 12/19/2017 Meningococcal B Vaccine Aged Out No l onger eligible based on patient's age to complete this topic Meningococcal Vaccine Aged Out No bryanna hermelindo eligible based on patient's age to complete this topic RSV Immunizations Under 20 Months Aged Out No longer eligible b ased on patient's age to complete this topic Goals Goal Patient Goal Type Associated Problems Recent Progress Patient-Stated? Author Health - patient able to perform ADLs independently Lifestyle Nicolle Michel RN Procedures Procedure Name Priority Date/Time Associated Diagnosis Comments LIPID PANEL Routine 07/21/2024 HEMOGLOBIN, GLYCOSYLATED Routine 08/22/2023 from Last 3 Months or Most Recently Relevant to Health Maintenance Results * LIPID PANEL (07/21/2024) CHOLESTEROL 119 TRIGLYCERIDES 155 HDL 52 LDL (CALCULATED) 44 NON HDL CHOLESTEROL 67 us Default History Genericprovider LABORATORY Final Result * HEMOGLOBIN, GLYCOSYLATED (08/22/2023) HGB A1C 9.8 % us Default History Genericprovider LABORATORY Final Result from Last 3 Months or Most Recently Relevant to Health Maintenance [place] [id number] [employer] Advance Directives * Full Code (Latest Code Status on File) Date Activated Date Inactivated Comments 02/24/2023 5:25 PM 02/26/2023 2:37 PM Care Teams Microfilm Equipment Inspector Relationship Specialty Start Date End Date Omari Díaz DO [address] [place] [address] PCP - General FAMILY PRACTICE 10/03/24
--- OUTSIDE RECORDS SUMMARY | 2025-01-25 01:54 | XMS_ITS | Clinical Summary ---
Author Organization [facility] [employer] Address [address] [place] [address] Care Team Providers Care Cover Maker Name Role Phone James Rebolledo MD Primary Care Provider [phone] Source Comments [facility] [employer],non-owned Affiliates and Associated Physician Practices is amultiple site organization consisting of ambulatory clinics and hospital sitesin [place], [place], [place] and [place]. This disclosure is being madepursuant to the Care Everywhere program and may not contain all information available regarding this patient. 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
--- OUTSIDE RECORDS SUMMARY | 2025-01-25 01:54 | XMS_ITS | Patient Health Record ---
Author Organization [facility] Address [address] [place] [address] Care Team Providers Care Clinical Account Liaison Name Role Phone Clinton Breen Primary Care Provider Marla BENJAMIN, Agustina Unavailable Unavailable Reason For Referral No Information Medications Medication SIG (Take, Route, Fr equency, Duration) Notes Start Date End Date Status glyBURIDE Acute Active State Active Voltaren Acute Active State Active trazodone Acute Active State Active Relafen 750 mg Acute Active State Active metformin Acute Active State Active Social History Tobacco Use: Social History Observation Description Date Details (start date - stop date) Never Smoker NA - NA Tobacco Use/Smoking Question Answer Notes Are you a nonsmoker Problems Problem Type SNOMED Code ICD Code Onset Dates Problem Status W/U Status Risk Notes Problem Thoracic and lumbosacral neuritis (682100944) Thoracic or lumbosacral neuritis or radiculitis, unspecified (724.4) Active confirmed Problem Lumbago (056578519) Lumbago (724.2) Active confirmed Problem Solitary sacroiliitis (568687287) Sacroiliitis, not elsewhere classified (720.2) Active confirmed Problem Lumbosacral spondylosis without myelopathy (44939711) Lumbosacral spondylosis without myelopathy (721.3) Active confirmed Problem Degeneration of lumbar intervertebral disc (07444025) Degeneration of lumbar or lumbosacral intervertebral disc (722.52) Active confirmed Problem Muscle pain (35176658) Unspecified myalgia and myositis (729.1) Active confirmed Plan Of Treatment No Information Insurance Providers Payer Name Payer Address Payer Phone Subscriber Number Group Number Insured Name Patient Relationship to Insured Coverage Start Date Coverage End Date [facility] Medicare Complete [address] [address] [place], [place] [id number] Kirit Lema Self - patient is the insured 4 4
--- OUTSIDE RECORDS SUMMARY | 2025-01-25 01:54 | XMS_ITS | Encounter Summary ---
Author Organization [facility] Healthcare Address [address] [place] [address] Care Team Providers Care Snap Shearer Name Role Phone James Rebolledo MD Primary Care Provide r Unknown, Notinfile Primary Care Provider Unavail able James Rebolledo MD Unavailable [phone] Miscellaneous, Not In File Unavailable Unava ilable James Rebolledo MD Primary Care Provide r Jason Cherry MD Primary Care Provider [phone] Yony Aviles MD Unavailable [phone] Huber Yeager MD Unavailable [phone] Vanessa Olsen MD Unavailable Hortencia Pollock OD Unavailable [phone] Amaury Oneil MD Unavailable + Omari Díaz DO Primary Care Provider [phone] Encounter Details Date Type Department Care Team (Late st Contact Info) Description 08/22/2017 Orders Only [facility] Health Information Management [address] [place] [id number] Scanning, Provider Social History Tobacco Use Types Packs/Day Years Used Date Smoking Tobacco: Former Cigarettes Q uit: 05/05/2010 Alcohol Use Standard Drinks/Week Comments Yes 0 (1 standard drink = 0.6 oz pur e alcohol) Sex and Gender Information Value Date Recorded Sex Assigned at Not on file Legal Sex Male 2:39 AM DIRECTOR CARDIOVASCULAR Gender Identity Not on file Sexual Orientation Not on file documented as of this encounter Plan of Treatment Not on file documented as of this encounter Procedures Procedure Name Priority Date/Time Associated Diagnosis Comments CARDIOLOGY DOCUMENT SCAN 08/22/2017 documented in this encounter Results * Cardiology Document Scan (08/22/2017) Anatomical Region Laterality Modality Other us Provider Scanning CV CARDIAC SERVICES PROCEDURES Final Result documented in this encounter Visit Diagnoses Not on filedocumented in this encounter Additional Health Concerns Infection Onset Date Last Indicated Resolved Time Exposure, Contact Comment:Patient exposed to C. [facility] patient on 04/16/2023. Please contact infection prevention for instructions on obtaining surveillance cultures. 05/20/2023 05/20/2023 05/20/2024 3:[address] documented as of this encounter Care Teams Snap Shearer Relationship Specialty Start Date End Date James Rebolledo MD [address] [place] [address] PCP - General 06/03/17 04/15/23 Unknown, Notinfile PCP - General 04/16/23 06/04/23 James Rebolledo MD [address] [place] [address] PCP - General Emergency Medicine 06/05/23 11/02/23 Jason Cherry MD [address] [address] PCP - General Family Medicine 11/03/23 06/21/24 Omari Díaz DO [address] [place] [address] PCP - General Family Medicine 06/22/24 James Rebolledo MD [address] [place] [address] 04/16/23 Miscellaneous, Not In File 04/25/23 Yony Aviles MD [address] [facility] [address] [place] [address] Surgeon Orthopedic Surgery 11/03/23 Huber Yeager MD [address] [facility] [address] [place] [address] Referring Physician Cardiovascular Disease 11/03/23 [place] [address] [facility] [address] [place] [address] Consulting Physician Endocrinology Diabetes & Metabolism 11/03/23 Hortencia Pollock OD [address] [place] [address] Optometry 11/03/23 Amaury Oneil MD [address] [place] [address] Referring Physician Gastroenterology 11/03/23 documented as of this encounter
[2025-01-25 07:21] VITALS: BP 128/78; PULSE 67; RESP 19; TEMP 35.9; O2SAT 99; BMI 23.3
[2025-01-25] MEDS: LACTATED RINGERS 1,000 ML 150 ML IV CONT (07:36)
--- NOTE | 2025-01-25 07:43 | WPDANESEPPF ---
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 Patient Data Age: 69 Gender: M Height: 1.8 m Weight: 75.9 kg Last Vital Signs Temp 96.7 F L 01/25/25 07:21 Pulse 67 01/25/25 07:21 Resp 19 01/25/25 07:21 BP 128/78 01/25/25 07:21 Pulse Ox 99 01/25/25 07:21 O2 Del Method Room Air 01/25/25 07:21 Allergies Allergy/AdvReac Type Severity Reaction Status Date / Time No Known Allergies Allergy Verified 01/25/25 07:19 Home Medications ?Medication ?Instructions ?Recorded ?Confirmed ?Type aspirin 81 mg chewable tablet 81 mg PO DAILY 03/29/19 01/25/25 History pen needle, diabetic 31 gauge x #200 ea 12/01/19 08/11/24 Rx 1/4 (UltiCare Pen Needle) blood sugar diagnostic (Contour See Rx Instructions .Route 05/15/20 01/11/25 Rx Next Test Strips) .COMPLEX #200 strips blood-glucose sensor (FreeStyle 06/03/24 08/11/24 History Alicia 3 Sensor device) diclofenac sodium 1 % topical gel 2 g topical QID 06/03/24 01/25/25 History (Arthritis Pain (diclofenac)) insulin lispro 100 unit/mL 1 sliding scale dose subcut 06/03/24 01/25/25 Rx subcutaneous pen (Humalog KwikPen USEASDIRECTD #15 mL (U-100) Insulin) insulin syringe-needle U-100 1 mL #10 ea 06/03/24 08/11/24 History 30 gauge x 1/2 (BD Insulin Syringe Ultra-Fine) meclizine 25 mg tablet 25 mg PO TID PRN dizziness 06/03/24 01/25/25 History metformin 500 mg tablet 1,000 mg PO BID 06/03/24 01/25/25 History polyethylene glycol ea miscellaneous 06/03/24 08/11/24 History amitriptyline 10 mg tablet 10 mg PO HS #90 tabs 04/09/25 09/23/25 Rx azelastine 137 mcg (0.1 %) nasal See Rx Instructions .Route 08/11/24 01/25/25 Rx spray .COMPLEX #30 mL duloxetine 60 mg capsule,delayed See Rx Instructions .Route 08/11/24 01/25/25 Rx release .COMPLEX #90 caps omeprazole 40 mg capsule,delayed See Rx Instructions .Route 08/11/24 01/25/25 Rx release .COMPLEX #180 caps rosuvastatin 20 mg tablet 20 mg PO DAILY #90 tabs 08/11/24 01/25/25 Rx trazodone 150 mg tablet 150 mg PO QHS #90 tabs 08/11/24 01/25/25 Rx fluticasone propionate 50 2 spray intranasal BID #16 grams 11/07/24 01/25/25 Rx mcg/actuation nasal spray,suspension insulin glargine U-300 conc 300 See Rx Instructions subcut BID 12/21/24 01/25/25 Rx unit/mL (1.5 mL) subcutaneous pen #4.5 mL (Toujeo SoloStar U-300 Insulin) montelukast 10 mg tablet 10 mg PO QPM 01/11/25 01/25/25 History Laboratory Tests 01/25/25 07:34 POC Capillary Glucose 106 H mg/dl (65-105) Patient hx anesthesia problems: none Family hx anesthesia problems: none Results Review: All pre-operative results and documents have been reviewed as part of the pre-operative evaluation. [facility] Past Medical History Medical History Right ankle injury Left shoulder strain Right shoulder injury Acute injury of left knee cartilage Tear of right rotator cuff Strain of tendon of left rotator cuff Osteoarthritis of carpometacarpal joint of right thumb Labral tear of long head of left biceps tendon Cerebrovascular accident (CVA) due to thrombosis Weakness of left arm Vitamin D deficiency Trigger thumb, right thumb Trigger thumb, left thumb Primary osteoarthritis of right shoulder Primary osteoarthritis of left shoulder Primary osteoarthritis involving multiple joints Paresthesia of skin Oropharyngeal dysphagia Numbness and tingling in left arm Medial epicondylitis, left elbow 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 Lateral epicondylitis, left elbow Incomplete tear of left rotator cuff Impingement syndrome of left shoulder History of CVA with residual deficit Bursitis of left shoulder Bilateral hand pain Bilateral carpal tunnel syndrome Hernandez's esophagus with dysplasia GERD (gastroesophageal reflux disease) Hypertension Diabetes type 2, controlled CVA (cerebral vascular accident) 08/2017 Surgical History Surgical History H/O pyloroplasty S/P rotator cuff repair History of repair of hiatal hernia S/P ACL repair History of repair of rotator cuff Family History Family History Mother Family history of malignant neoplasm Family history of cardiovascular disease Father Family history of cardiovascular disease Sibling Family history of cardiovascular disease Social History Social History Smoking status: Never smoker Alcohol intake: current Drinks per week: 3 Alcohol use details: social Substance use: never Substance use type: does not use Do You Feel Safe in your Home?: Yes Lack of Transportation: No Current Housing: Decline to Answer Concerned About Future Housing: Decline to Answer Difficulty Paying Gas/Electric Bills: Decline to Answer Difficulty Paying for Meds: Decline to Answer Currently Unemployed: Decline to Answer Education: Decline to Answer Difficulty w/ Childcare or Family Care: Decline to Answer Living arrangements: with family Spiritual care concerns: No Anes - Eval Final PreProcedure Day of Procedure 01/25/25 07:43 Patient weight: normal Lungs: normal air movement Airway: Mallampati scale class II Neurological: alert and oriented Last oral intake: >/= 8 hours ASA classification: III Emergent: no Anesthetic plan: proceed Anesthesia type and monitoring: general GIVS and standard monitoring Results Review: All pre-operative results and documents have been reviewed as part of the pre-operative evaluation. hx of CVA w L arm coordination decreased, DM fsbs 106, hx of barretts. Informed Consent: The patient's anesthetic plan and its attendant risks and benefits were discussed with the patient/family/POA. Questions were solicited and answers provided to the satisfaction of the patient/family/POA.
--- NOTE | 2025-01-25 08:27 | PM.HPGS ---
History of Present Illness History of Present Illness Consent: Risks, benefits, and alternatives have been discussed and questions answered. Patient agrees to proceed with procedure. 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 He has Hernandez's that required ablation years ago, last EGD 2021 with no more signs of Hernandez's Review of Systems Review of Systems: All systems reviewed & are unremarkable except as noted in HPI and below PMFSH Past Medical History Medical History Right ankle injury Left shoulder strain Right shoulder injury Acute injury of left knee cartilage Tear of right rotator cuff Strain of tendon of left rotator cuff Osteoarthritis of carpometacarpal joint of right thumb Labral tear of long head of left biceps tendon Cerebrovascular accident (CVA) due to thrombosis Weakness of left arm Vitamin D deficiency Trigger thumb, right thumb Trigger thumb, left thumb Primary osteoarthritis of right shoulder Primary osteoarthritis of left shoulder Primary osteoarthritis involving multiple joints Paresthesia of skin Oropharyngeal dysphagia Numbness and tingling in left arm Medial epicondylitis, left elbow 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 Lateral epicondylitis, left elbow Incomplete tear of left rotator cuff Impingement syndrome of left shoulder History of CVA with residual deficit Bursitis of left shoulder Bilateral hand pain Bilateral carpal tunnel syndrome Hernandez's esophagus with dysplasia GERD (gastroesophageal reflux disease) Hypertension Diabetes type 2, controlled CVA (cerebral vascular accident) 08/2017 Surgical History Surgical History H/O pyloroplasty S/P rotator cuff repair History of repair of hiatal hernia S/P ACL repair History of repair of rotator cuff Family History Family History Mother Family history of malignant neoplasm Family history of cardiovascular disease Father Family history of cardiovascular disease Sibling Family history of cardiovascular disease Social History Social History Smoking status: Never smoker Alcohol intake: current Drinks per week: 3 Alcohol use details: social Substance use: never Substance use type: does not use Do You Feel Safe in your Home?: Yes Lack of Transportation: No Current Housing: Decline to Answer Concerned About Future Housing: Decline to Answer Difficulty Paying Gas/Electric Bills: Decline to Answer Difficulty Paying for Meds: Decline to Answer Currently Unemployed: Decline to Answer Education: Decline to Answer Difficulty w/ Childcare or Family Care: Decline to Answer Living arrangements: with family Spiritual care concerns: No Meds Home Medications and Allergies Home Medications ?Medication ?Instructions ?Recorded ?Confirmed ?Type aspirin 81 mg chewable tablet 81 mg PO DAILY 03/29/19 01/25/25 History pen needle, diabetic 31 gauge x #200 ea 12/01/19 08/11/24 Rx 1/4 (UltiCare Pen Needle) blood sugar diagnostic (Contour See Rx Instructions .Route 05/15/20 01/11/25 Rx Next Test Strips) .COMPLEX #200 strips blood-glucose sensor (FreeStyle 06/03/24 08/11/24 History Alicia 3 Sensor device) diclofenac sodium 1 % topical gel 2 g topical QID 06/03/24 01/25/25 History (Arthritis Pain (diclofenac)) insulin lispro 100 unit/mL 1 sliding scale dose subcut 06/03/24 01/25/25 Rx subcutaneous pen (Humalog KwikPen USEASDIRECTD #15 mL (U-100) Insulin) insulin syringe-needle U-100 1 mL #10 ea 06/03/24 08/11/24 History 30 gauge x 1/2 (BD Insulin Syringe Ultra-Fine) meclizine 25 mg tablet 25 mg PO TID PRN dizziness 06/03/24 01/25/25 History metformin 500 mg tablet 1,000 mg PO BID 06/03/24 01/25/25 History polyethylene glycol ea miscellaneous 06/03/24 08/11/24 History amitriptyline 10 mg tablet 10 mg PO HS #90 tabs 08/11/24 01/25/25 Rx azelastine 137 mcg (0.1 %) nasal See Rx Instructions .Route 08/11/24 01/25/25 Rx spray .COMPLEX #30 mL duloxetine 60 mg capsule,delayed See Rx Instructions .Route 08/11/24 01/25/25 Rx release .COMPLEX #90 caps omeprazole 40 mg capsule,delayed See Rx Instructions .Route 08/11/24 01/25/25 Rx release .COMPLEX #180 caps rosuvastatin 20 mg tablet 20 mg PO DAILY #90 tabs 08/11/24 01/25/25 Rx trazodone 150 mg tablet 150 mg PO QHS #90 tabs 08/11/24 01/25/25 Rx fluticasone propionate 50 2 spray intranasal BID #16 grams 11/07/24 01/25/25 Rx mcg/actuation nasal spray,suspension insulin glargine U-300 conc 300 See Rx Instructions subcut BID 12/21/24 01/25/25 Rx unit/mL (1.5 mL) subcutaneous pen #4.5 mL (Toujeo SoloStar U-300 Insulin) montelukast 10 mg tablet 10 mg PO QPM 01/11/25 01/25/25 History Allergies Allergy/AdvReac Type Severity Reaction Status Date / Time No Known Allergies Allergy Verified 01/25/25 07:19 Vital Signs Vital Signs - 24 hr 01/25/25 07:21 Temperature 96.7 F L Pulse Rate 67 Respiratory Rate 19 Blood Pressure 128/78 Pulse Oximetry 99 Oxygen Delivery Room Air Exam Const: General: comfortable and no acute distress HENMT: Face/Nose/Sinus: Normal nares present Eyes: General: appearance normal, both eyes and all related structures Neck: Neck: no JVD Resp: Auscultation: clear to auscultation bilaterally Cardio: Rate: regular rate Rhythm: regular rhythm GI: Inspection: non-distended GI Palp: Yes Soft to palpation Skin: General skin exam: normal color Neuro: Speech: normal speech Extrem: General: normal to inspection Psych: Mental Status: mental status grossly normal Assessment and Plan Assessment and plan (1) Hernandez esophagus: Code(s): K22.70 - 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
--- NOTE | 2025-01-25 08:36 | S_PTH ---
PATIENT: Kirit Lema LOC: [facility] U#:[id number] AGE/SX: 69/M ROOM: RE01/25/[address]: Amaury Cross MD : 1955 BED: DIS: 01/25/2025 SPEC #: [id number] RECD: 01/25/25 08:58 STATUS: DONNIE REQ #: [id number] RENETTA: 01/25/25 08:[address]: Amaury Cross DEPT: [facility] RECD BY: Jessica Bajwa ENTERED: 01/25/25 08:59 SP TYPE: Surgical OTHR DR: Liya Hernadez APRN Tissues: A - Esophageal Biopsy Procedures: Hematoxylin and Eosin Stain Gross and Microscopic Level 4
[2025-01-25 08:41] VITALS: BP 121/83; PULSE 73; RESP 20; O2SAT 99
[2025-01-25 08:51] VITALS: BP 126/75; PULSE 61; RESP 17; O2SAT 98
[2025-01-25 09:01] VITALS: BP 127/85; PULSE 64; RESP 18; O2SAT 100
== END 2025-01-25 09:04 | disposition home or self-care (01) ==
PROVIDERS: PCP Nurse Practitioner Family; Referring Provider Internal Medicine Gastroenterology; Visit Provider Internal Medicine Gastroenterology
PROC: 0DJ08ZZ Inspection of Upper Intestinal Tract, Via Natural or Artificial Opening Endoscopic (ICD-10-PCS; CPT 43239; principal; 2025-01-25 08:30)
DX: K21.00 Gastro-esophageal reflux disease with esophagitis, without bleeding (principal); I10 Essential (primary) hypertension; E11.9 Type 2 diabetes mellitus without complications; E55.9 Vitamin D deficiency, unspecified; M19.012 Primary osteoarthritis, left shoulder; M19.011 Primary osteoarthritis, right shoulder; M18.11 Unilateral primary osteoarthritis of first carpometacarpal joint, right hand; Z79.4 Long term (current) use of insulin; Z79.82 Long term (current) use of aspirin; Z79.84 Long term (current) use of oral hypoglycemic drugs; Z98.890 Other specified postprocedural states; Z86.79 Personal history of other diseases of the circulatory system; Z80.9 Family history of malignant neoplasm, unspecified; Z82.49 Family history of ischemic heart disease and other diseases of the circulatory system
CPT/HCPCS: 43239; 82948; 88305; J2003; J2704; J7120